=== PATIENT | male | born 1955 | race Caucasian/White ===

== ENCOUNTER 2019-01-03 03:51 | Inpatient (IN) | payer MEDICAID ==
[~2019-01-03] VITALS: Ht 165.1 cm; Wt 77.7 kg
[2019-01-03] VITALS (18 sets, daily range): BP systolic 84–164; BP diastolic 46–93; PULSE 93–127; RESP 14–27; Ht 165.1 cm; Wt 77.7 kg
[2019-01-03] MEDS ORDERED: SOD CHLORIDE 0.9% 1,000 ML IV STA (03:57)
[2019-01-03] MEDS ORDERED: SOD CHLORIDE 0.9% 1,000 ML IV ONE ×2 (05:30→08:00)
[2019-01-03] MEDS ORDERED: FOLIC ACID 1 MG TAB PO ONE (05:30)
[2019-01-03] MEDS ORDERED: ACETAMINOPHEN 325 MG TAB PO PRN (05:30)
[2019-01-03] MEDS ORDERED: THIAMINE 100 MG TAB PO ONE (05:30)
[2019-01-03] MEDS ORDERED: ONDANSETRON 4 MG INJ IV PRN (05:30)
[2019-01-03] MEDS: PANTOPRAZOLE 40 MG INJ IV SCH (06:00)
[2019-01-03] MEDS ORDERED: ACETAMINOPHEN 650MG/20.3ML CUP PO PRN (06:00)
--- NOTE | 2019-01-03 06:29 | ERD ---
ER Documentation Chief Complaint Chief Complaint BIB R90. ALTERED, ETOH INTOXICATIOX X 3 DAYS. HPI This is a 63-year-old male with an unknown past medical history aside from alcohol abuse who is presenting with altered mental status. According to the patient's friends, the patient went on a doherty and has been consuming heavy amounts of alcohol over the last 3-4 days. The patient did not drink today. The patient was found this evening acutely altered, which is when his housemates called an ambulance. The patient bit his tongue. He is awake and alert but only oriented x1. He is unable to answer other orientation questions. The patient does not have any focal deficits. He does not have any weakness or numbness or tingling to the face or extremities. The patient is diaphoretic. History and physical is limited secondary to altered mentation. ROS Limited secondary to altered mentation. Allergies Allergies: Coded Allergies: No Known Allergy (Unverified , 01/03/19) PMhx/Soc Medical and Surgical Hx: pt denies Medical Hx, pt denies Surgical Hx History of Surgery: No Anesthesia Reaction: No Hx Neurological Disorder: No Hx Respiratory Disorders: No Hx Cardiac Disorders: No Hx Psychiatric Problems: No Hx Miscellaneous Medical Probl: No Hx Alcohol Use: Yes (EVERYDAY DRINKER) Hx Substance Use: No Hx Tobacco Use: No Smoking Status: Unknown if ever smoked FmHx Unable to obtain secondary to altered mentation. Physical Exam Vitals Vital Signs Date Temp Pulse Resp B/P (MAP) Pulse Ox O2 O2 Flow FiO2 Time Delivery Rate 01/03/19 114 24 196/108 98 Nasal 2.0 05:12 (137) Cannula 01/03/19 98.7 115 20 185/98 95 03:57 (127) 01/03/19 Nasal 2 03:55 Cannula Physical Exam Const: No apparent distress, well-developed, well-nourished Head: Normocephalic, Atraumatic Eyes: Normal Conjunctiva. Extraocular movements intact. Pupils equal, round and reactive to light ENT: Normal External Ears, Nose and Mouth. Tongue abrasions. Neck: Full range of motion. No meningismus. Resp: Clear to auscultation bilaterally, No wheezes, rales or rhonchi Cardio: Regular rate and rhythm. No murmurs, rubs or gallops Abd: Soft, non tender, non distended. Normal bowel sounds Skin: No petechiae or rashes Back: No midline tenderness. No CVA tenderness Ext: No cyanosis, or edema Neur: Awake and alert, oriented 1. Cranial nerves intact. No facial droop. Normal strength, sensation and coordination. Result Diagram: 01/03/190 01/03/19399 Results 24 hrs Laboratory Tests Test 01/03/19 04:00 01/03/19 04:01 01/03/19 04:04 01/03/19 05:18 White Blood Count 6.8 10^3/ul Red Blood Count 4.41 10^6/ul Hemoglobin 12.3 g/dl Hematocrit 34.9 % Mean Corpuscular 79.1 fl Volume Mean Corpuscular 27.9 pg Hemoglobin Mean Corpuscular 35.2 g/dl Hemoglobin Concent Red Cell 12.7 % Distribution Width Platelet Count 91 10^3/UL Mean Platelet 11.6 fl Volume Immature 0.900 % Granulocytes % Neutrophils % 70.5 % Lymphocytes % 20.9 % Monocytes % 7.4 % Eosinophils % 0.0 % Basophils % 0.3 % Nucleated Red Blood 0.3 /100WBC Cells % Immature 0.060 10^3/ul Granulocytes # Neutrophils # 4.8 10^3/ul Lymphocytes # 1.4 10^3/ul Monocytes # 0.5 10^3/ul Eosinophils # 0.0 10^3/ul Basophils # 0.0 10^3/ul Nucleated Red Blood 0.0 10^3/ul Cells # Sodium Level 117 mmol/L Potassium Level 3.0 mmol/L Chloride Level 74 mmol/L Carbon Dioxide 24 mmol/L Level Anion Gap 19 Blood Urea Nitrogen 10 mg/dl Creatinine 0.68 mg/dl Est Glomerular > 60 mL/min Filtrat Rate mL/min Glucose Level 251 mg/dl Calcium Level 8.1 mg/dl Total Bilirubin 0.8 mg/dl Direct Bilirubin 0.00 mg/dl Indirect Bilirubin 0.8 mg/dl Aspartate Amino 165 IU/L Transf (AST/SGOT) Alanine 84 IU/L Aminotransferase (A LT/SGPT) Alkaline 69 IU/L Phosphatase Total Protein 6.4 g/dl Albumin 3.9 g/dl Globulin 2.50 g/dl Albumin/Globulin 1.56 Ratio Salicylates Level < 1.0 mg/dl Acetaminophen Level < 10.0 ug/ml Ethyl Alcohol Level < 10.0 mg/dl POC Venous Lactate 7.7 mmol/L Bedside Glucose 236 mg/dL Urine Color STRAW Urine Clarity CLEAR Urine pH 9.0 Urine Specific 1.008 [place] Urine Ketones NEGATIVE mg/dL Urine Nitrite NEGATIVE mg/dL Urine Bilirubin NEGATIVE mg/dL Urine Urobilinogen NEGATIVE mg/dL Urine Leukocyte NEGATIVE Gloria/ul Esterase Urine Microscopic 2 /HPF RBC Urine Microscopic 0 /HPF WBC Urine Hemoglobin 1+ mg/dL Urine Glucose 2+ mg/dL Urine Total Protein NEGATIVE mg/dl Urine Opiates Negative Screen Urine Barbiturates Negative Urine Amphetamines Negative Screen Urine Negative Benzodiazepines Screen Urine Cocaine Negative Screen Urine Cannabinoids Negative Current Medications Medications Dose Sig/Rica Start Time Status Last (Trade) Ordered Route PRN Stop Time Admin Dose Reason Admin Sodium 1,000 ml @ Q1H STAT 01/03/19 DC 01/03/19 Chloride 1,000 mls/hr IV 03:57 01/03/19 04:13 04:56 Sodium 1,000 ml @ Q1H ONCE 01/03/19 01/03/19 Chloride 1,000 mls/hr IV 05:30 01/03/19 05:27 06:29 Thiamine 100 mg ONCE ONCE 01/03/19 DC 01/03/19 HCl PO 05:30 01/03/19 06:13 (Vitamin B1) 05:31 Folic Acid 1 mg ONCE ONCE 01/03/19 DC 01/03/19 (Folic Acid) PO 05:30 01/03/19 06:13 05:31 Ondansetron 4 mg ER BRIDGE 01/03/19 HCl (Zofran PRN IV 05:30 01/04/19 Inj) NAUSEA/VOMITI 05:29 NG 650 mg ER BRIDGE 01/03/19 Acetaminophen PRN PO 05:30 01/04/19 (Tylenol .MILD PAIN 05:29 Tab) 1-3 OR TEMP Ondansetron 4 mg Q6H PRN 01/03/19 HCl (Zofran IV NAUSEA 06:00 Inj) AND/OR VOMITING 650 mg Q6H PRN 01/03/19 Acetaminophen PO PAIN 06:00 (Tylenol LEVEL 1-3 OR Liquid) FEVER Lorazepam 1 mg Q2H PRN 01/03/19 (Ativan) IV CONTROL 06:00 WITHDRAWAL SYMPTOMS 40 mg DAILY@06 01/03/19 Pantoprazole IV 06:00 (Protonix Iv) Procedures/MDM MDM The patient's presentation warrants further investigation. Previous medical records, if available, were reviewed. LABS The patient's laboratory testing was obtained and reviewed. No emergent treatment was required unless described below. CBC: No E/o systemic infection. Microcytic anemia, not emergent. Thrombocytopenia, likely related to his alcohol abuse. Chemistry: Emergent hyponatremia, likely acute. Hypokalemia, nonemergent. Hyperglycemia without evidence of DKA. Transaminitis and a ratio concerning for alcoholic liver disease. No E/o severe acidosis or alkalosis or renal failure. Lactate: Elevated, which I suspect is related to a seizure. Symptoms not consistent with an infectious etiology. Urine: No E/o acute infection or hematuria Tox: No E/o alcohol abuse. No E/o illicit drug use. No E/o salicylate or acetaminophen use. EKG EKG read by me: Rate/Rhythm: Sinus tachycardia at 109 bpm Intervals: Normal [place]: Normal Impression: No evidence of acute ischemia or arrhythmia IMAGING Imaging and Radiology interpretation reviewed. CXR FINDINGS: There is no airspace consolidation or focal infiltrate. No pleural effusion or pneumothorax. Cardiac silhouette and mediastinal contours are unremarkable. Pulmonary vasculature appears normal. Regional bones are grossly unremarkable. IMPRESSION: No evidence of active cardiopulmonary disease. Electronically viewed and signed by Physician Reji on 01/03/2019 04:53 CT Head FINDINGS: CALVARIUM: Regional bones are intact. SINUSES: Paranasal sinuses and mastoid air cells are clear. BRAIN: There is no evidence of intracranial hemorrhage. Prominence of ventricles and cisterns is normal for age. Pal - white differentiation is preserved and there is no evidence of an acute or subacute territorial infarction. No intracranial mass or mass effect. IMPRESSION: Negative unenhanced head CT. Electronically viewed and signed by Physician Reji on 01/03/2019 04:53 TREATMENT/DISPOSITION The patient presents with altered mental status. The patient has evidence of chronic alcohol abuse and alcoholic liver disease. The patient reportedly has been drinking heavily for several days, but his alcohol level is negative currently. I am concerned about alcohol withdrawal. Wernicke encephalopathy is certainly a possibility. The patient may benefit from an MRI in the hospital. I am also concerned about the possibility of an alcohol withdrawal seizure. The patient's lactic acid is quite elevated and there is clinical evidence of a seizure including abrasions to the tongue. Another possible etiology of his seizure could be his significant hyponatremia Given the patient's significant binge drinking over the last 4 days, I suspect that his hyponatremia is acute and related to poor nutrition. The patient was given IV fluids in the emergency department. The patient was also treated with thiamine and folate. The patient is tachycardic, but I believe this to be related to his alcohol withdrawal. Aside from tachycardia, the patient is afebrile with stable vital signs and no leukocytosis. I suspect the patient's lactic acid is related to a seizure and less likely sepsis. I do not believe the patient is septic and I do not think he requires a full septic workup. I do not feel the patient would benefit from antibiotics. CRITICAL CARE NOTE Time: 37 minutes excluding all billable procedures. Treatments/Evaluations: The patient was at risk of hemodynamic compromise. Timing of critical care involved close serial monitoring, evaluation of the patient's medical record including previous records & current laboratory/imaging studies, potential interventions for prevention of hemodynamic/ cardiopulmonary/ neurologic compromise, maintaining tight fluid balance, and any discussions with the family and/or consultants regarding the patient's status and prognosis. ADMISSION At this time, I feel that the patient requires admission for further evaluation and management. The patient will be admitted to panel in accordance with the patient's insurance. The patient was accepted by Dr. aNsh at 5:14 AM on Dec. Disclaimer: Inadvertent spelling and grammatical errors are likely due to EHR/dictation software use and do not reflect on the overall quality of patient care. Note that the electronic time recorded on this note does not necessarily reflect the actual time of the patient encounter. Departure Diagnosis: Primary Impression: Seizure Additional Impressions: Hyponatremia Alcohol withdrawal Complication of substance-induced condition: with delirium Qualified Codes: F10.231 - Alcohol dependence with withdrawal delirium Alcoholic liver disease Transaminitis Hypokalemia Microcytic anemia Thrombocytopenia Lactic acidosis Hyperglycemia Condition: Critical HUNTER LOYA MD Jan 03, 2019 06:27
--- NOTE | 2019-01-03 07:27 | HP ---
Date/Time of Note Date/Time of Note DATE: 01/03/19 TIME: 07:20 Assessment/Plan VTE Prophylaxis SCD applied (from Nsg): Yes Pharmacological prophylaxis: NA/contraindicated Pharm contraindication: low risk/ambulating Lines/Catheters IV Catheter Type (from Nrsg): Saline Lock Assessment/Plan Hospital Course This is a 63-year-old male being admitted to the ICU floor for: #1 acute encephalopathy: Likely multifactorial secondary to underlying severe hyponatremia, possible alcohol withdrawal, possible seizure, possible Wernicke encephalopathy.. At the current time patient is alert and oriented x1 he does not have any focal neurological deficits however he is not able to give any other history and he is not making sense with what he saying. At the current time will monitor for seizures with PRN Ativan and monitor for ETOH withdrawl. Treat the hyponatremia. Consider MRI of the brain when more stable. Neurology consultation. #2 severe hyponatremia: Unsure if acute or chronic, will need to increase it atleast to above 120 then try not to correct more than 4 - 6 meq in the first 24 hrs. Likely secondary to poor p.o. intake, dehydration, alcohol use. Will check stat BMP to assess patient's current sodium status after receiving 1.5 L of normal saline in the ED. Patient does appear to be clinically dry. Will obtain repeat sodium level and consider hypertonic saline. Patient though does appear to be volume depleted and likely will need more normal saline bolus. Will check fractional excretion of sodium, urine osmolarity, microscopic UA. Will consult nephrology Dr. Borrego. #3 hypokalemia: Again secondary likely to alcohol use, poor p.o. intake, dehydration. Will replete. #4 #4 profound lactic acidosis: Initial lactate 7.1. Likely secondary to alcohol, possible seizure. Will repeat. No signs of infection at the current time so hold off on any further antibiotics. #5 possible seizure: patient does appear to have bitten his tongue. Possibly secondary to ETOH intox/withdrawl. PRN Ativan, seizure precautions. Will consult neurology Dr. garcia. consider MRI brain when able, EEG #6 alcohol abuse: Patient at the current time his blood alcohol level is nond etectable. Nonetheless given history provided by family friends we will treat him with as needed Ativan, Librium taper. We will also treat for possible underlying Warnicke encephalopathy with high-dose thiamine. Folic acid, MVI. Will check vitamin B12 and folate level. #7 thrombocytopenia: Possibly secondary to underlying liver disease, will obtain right upper quadrant ultrasound. Avoid any chemical anticoagulants and at the current time. Monitor platelet count. #8 Microcytosis: We will check iron stores #9 elevated blood glucose: We will check hemoglobin A 1C, insulin sliding scale #10 DVT GI prophylaxis: SCDs, no GI prophylaxis indicated Protonix IV Further treatment strategy will be implemented as per the clinical course Greater than 45 minutes of critical care time was spent on the care management this patient. Result Diagram: 01/03/19 0651 01/03/19 0400 Results 24hrs Laboratory Tests Test 01/03/19 04:00 01/03/19 04:01 01/03/19 04:04 01/03/19 05:18 White Blood Count 6.8 Red Blood Count 4.41 L Hemoglobin 12.3 L Hematocrit 34.9 L Mean Corpuscular Volume 79.1 L Mean Corpuscular 27.9 L Hemoglobin Mean Corpuscular 35.2 Hemoglobin Concent Red Cell Distribution 12.7 Width Platelet Count 91 L Mean Platelet Volume 11.6 H Immature Granulocytes % 0.900 H Neutrophils % 70.5 Lymphocytes % 20.9 Monocytes % 7.4 Eosinophils % 0.0 Basophils % 0.3 Nucleated Red Blood 0.3 H Cells % Immature Granulocytes # 0.060 H Neutrophils # 4.8 Lymphocytes # 1.4 Monocytes # 0.5 Eosinophils # 0.0 Basophils # 0.0 Nucleated Red Blood 0.0 Cells # Sodium Level 117 *L Potassium Level 3.0 L Chloride Level 74 L Carbon Dioxide Level 24 Anion Gap 19 H Blood Urea Nitrogen 10 Creatinine 0.68 Est Glomerular Filtrat > 60 Rate mL/min Glucose Level 251 H Calcium Level 8.1 L Total Bilirubin 0.8 Direct Bilirubin 0.00 Indirect Bilirubin 0.8 Aspartate Amino 165 H Transf (AST/SGOT) Alanine 84 H Aminotransferase (ALT/SG PT) Alkaline Phosphatase 69 Total Protein 6.4 Albumin 3.9 Globulin 2.50 Albumin/Globulin Ratio 1.56 Salicylates Level < 1.0 L Acetaminophen Level < 10.0 L Ethyl Alcohol Level < 10.0 H POC Venous Lactate 7.7 *H Bedside Glucose 236 H Urine Color STRAW Urine Clarity CLEAR Urine pH 9.0 Urine Specific [place] 1.008 Urine Ketones NEGATIVE Urine Nitrite NEGATIVE Urine Bilirubin NEGATIVE Urine Urobilinogen NEGATIVE Urine Leukocyte Esterase NEGATIVE Urine Microscopic RBC 2 Urine Microscopic WBC 0 Urine Hemoglobin 1+ H Urine Glucose 2+ H Urine Total Protein NEGATIVE Urine Opiates Screen Negative Urine Barbiturates Negative Urine Amphetamines Negative Screen Urine Benzodiazepines Negative Screen Urine Cocaine Screen Negative Urine Cannabinoids Negative Test 01/03/19 06:03 01/03/19 06:05 01/03/19 06:51 Lactic Acid Level 2.1 *H White Blood Count 8.3 # 8.5 Red Blood Count 4.34 L 4.62 L Hemoglobin 12.1 L 12.7 L Hematocrit 33.5 L 35.5 L Mean Corpuscular Volume 77.2 L 76.8 L Mean Corpuscular 27.9 L 27.5 L Hemoglobin Mean Corpuscular 36.1 35.8 Hemoglobin Concent Red Cell Distribution 12.6 12.7 Width Platelet Count 82 L 71 L Mean Platelet Volume 12.6 H 12.0 H Immature Granulocytes % 0.800 H 0.400 Neutrophils % 90.1 H 87.8 H Lymphocytes % 5.9 L 8.8 L Monocytes % 3.1 2.8 Eosinophils % 0.0 0.0 Basophils % 0.1 0.2 Nucleated Red Blood 0.0 0.0 Cells % Immature Granulocytes # 0.070 H 0.030 Neutrophils # 7.5 7.5 Lymphocytes # 0.5 L 0.8 Monocytes # 0.3 0.2 L Eosinophils # 0.0 0.0 Basophils # 0.0 0.0 Nucleated Red Blood 0.0 0.0 Cells # HPI/ROS Admit Date/Time Admit Date/Time Jan 03, 2019 at 05:29 Hx of Present Illness Chief complaint: Altered mental status the following history was obtained from the ED physician as well as from the RN and the EMS as patient not able to provide history. This is a 63-year-old male with an unknown past medical history aside from alcohol abuse who is presenting with altered mental status. According to the patient's friends, the patient was binge drinking heavy amounts of alcohol over the last 3-4 days, and then stopped yesterday. . The patient was found this evening acutely altered, which is when his housemates called an ambulance. The patient bit his tongue. Upon my examination of the patient he is awake and alert but he only oriented to himself, he does not know where he is or what the date is. He is unable to give any history. He is able to follow commands such as raising bilateral feet and legs symmetrically. There does not appear to be any focal neurological deficits. He was able to state that he needs to urinate but he was unable to properly urinate into the urinal without assistance as he did not have coordination. Allergies: NKDA Medications: Unknown ROS Subjective hx not possible: other (Unable to obtain given patient's acute encephalopathy) PMH/Family/Social Past Medical History Unable to obtain given patient's acute encephalopathy Medications Current Medications Ondansetron HCl (Zofran Inj) 4 mg ER BRIDGE PRN IV NAUSEA/VOMITING; Start 01/03/19 at 05:30; Stop 01/04/19 at 05:29 Acetaminophen (Tylenol Tab) 650 mg ER BRIDGE PRN PO .MILD PAIN 1-3 OR TEMP; Start 01/03/19 at 05:30; Stop 01/04/19 at 05:29 Ondansetron HCl (Zofran Inj) 4 mg Q6H PRN IV NAUSEA AND/OR VOMITING; Start 01/03/19 at 06:00 Acetaminophen (Tylenol Liquid) 650 mg Q6H PRN PO PAIN LEVEL 1-3 OR FEVER; Start 01/03/19 at 06:00 Lorazepam (Ativan) 1 mg Q2H PRN IV CONTROL WITHDRAWAL SYMPTOMS; Start 01/03/19 at 06:00 Pantoprazole (Protonix Iv) 40 mg DAILY@06 IV ; Start 01/03/19 at 06:00 Thiamine HCl (Vitamin B1) 500 mg ONCE ONCE IV ; Start 01/03/19 at 07:30; Stop 01/03/19 at 07:31; Status UNV Thiamine HCl (Vitamin B1) 200 mg DAILY IM ; Start 01/03/19 at 09:00; Stop 01/07/19 at 08:59; Status UNV Folic Acid (Folic Acid) 1 mg DAILY PO ; Start 01/03/19 at 09:00; Status UNV Multivitamins Therapeutic (Theragran) 1 tab DAILY PO ; Start 01/03/19 at 09:00; Status UNV Coded Allergies: No Known Allergy (Unverified , 01/03/19) Past Surgical History Unable to obtain given patient's acute encephalopathy Family History Significant Family History: other (Unable to obtain given patient's acute encephalopathy) Social History Unable to obtain given patient's acute encephalopathy. Friend stated that he did recently go on a binge drinking spree Smoking Status: Unknown if ever smoked Exam/Review of Systems Vital Signs Vitals Vital Signs Date Temp Pulse Resp B/P (MAP) Pulse Ox O2 O2 Flow FiO2 Time Delivery Rate 01/03/19 127 07:10 01/03/19 24 196/108 98 Nasal 2.0 05:12 (137) Cannula 01/03/19 98.7 03:57 Intake and Output 01/02/19 01/02/19 01/03/19 1515:00 23:00 07:00 IntakeIntake Total 1500 ml OutputOutput Total 1100 ml BalanceBalance 400 ml Exam Exam General: Patient currently sitting in bed, he does appear diaphoretic, he is awake and alert he is able to state his name. HEENT: Atraumatic, normocephalic. Possible nystagmus on examination Neck: Supple with full range of motion. No rigidity or meningismus Chest: Nontender Lungs: Clear to auscultation bilaterally no crackles rales or wheezing Heart: Sinus tachycardia Abdomen: Soft , nontender, nondistended , bowel sounds are present. No guarding no rebound tenderness , No masses or organomegaly. No costovertebral temporal angle mass Extremities: Normal to inspection, no edema no cyanosis Neurologic: Awake and alert and oriented to person, cranial nerves II through XII intact. 1 Additional Comments PROCEDURE: CT Brain without contrast. CLINICAL INDICATION: Altered mental status, intoxication TECHNIQUE: A CT of the brain was performed utilizing axial imaging from the skull base through the vertex without IV contrast. Multiplanar reformatted images were made. Images were reviewed on a PACS workstation. CTDIvol: 38.86 mGy DLP: 857.17 mGycm DICOM images are available. One or more of the following dose reduction techniques were utilized: 1.) Automated exposure control 2.) Adjustment of the mA +/- kV according to patient's size 3.) Use of iterative reconstruction technique. COMPARISON: None FINDINGS: CALVARIUM: Regional bones are intact. SINUSES: Paranasal sinuses and mastoid air cells are clear. BRAIN: There is no evidence of intracranial hemorrhage. Prominence of ventricles and cisterns is normal for age. Pal - white differentiation is preserved and there is no evidence of an acute or subacute territorial infarction. No intracranial mass or mass effect. IMPRESSION: Negative unenhanced head CT. RPTAT: [facility] x-Socrates Cedillo, Physician Date Time Electronically viewed and signed by Physician Araecli on 01/03/2019 04:53 xB/ CC: HUNTER LOYA MD [id number] PROCEDURE: Single view chest. CLINICAL INDICATION: Altered mental status TECHNIQUE: Single view of the chest was obtained COMPARISON: None FINDINGS: There is no airspace consolidation or focal infiltrate. No pleural effusion or pneumothorax. Cardiac silhouette and mediastinal contours are unremarkable. Pulmonary vasculature appears normal. Regional bones are grossly unremarkable. IMPRESSION: No evidence of active cardiopulmonary disease. RPTAT: [facility] Bren Cedillo, Physician Date Time Electronically viewed and signed by Physician Araceli on 01/03/2019 04:53 xB/ CC: HUNTER LOYA MD [id number] LOBITO DURHAM Jan 03, 2019 07:27
[2019-01-03] MEDS ORDERED: THIAMINE 200 MG INJ IV ONE (07:30)
[2019-01-03] MEDS: INSULIN ASPART [NOVOLOG] 3 ML PEN SC SCH ×4 (07:35→20:35)
[2019-01-03] MEDS: LORAZEPAM 2 MG INJ IV PRN ×4 (07:44→17:50)
[2019-01-03] MEDS ORDERED: GLUCOSE GEL 15 GRAM TUBE PO PRN ×2 (08:00)
[2019-01-03] MEDS ORDERED: GLUCOSE GEL 15 GRAM TUBE BUCCAL PRN (08:00)
[2019-01-03] MEDS ORDERED: GLUCAGON 1 MG INJ IM PRN (08:00)
[2019-01-03] MEDS ORDERED: DEXTROSE 50% 50 ML SYRINGE IV PRN ×2 (08:00)
[2019-01-03] MEDS ORDERED: THIAMINE 500 MG in SOD CHLORIDE 0.9% 250 ML IV SCH (09:00)
--- NOTE | 2019-01-03 09:43 | CONS ---
Assessment/Plan Assessment/Plan Hospital Course 63 M c/ known ETOH abuse, who presents for evaluation of seizure and ams in the context of ETOH cessation. Na 117 The clinical picture is most consistent w/ provoked seizure.. Epilepsy is unlikely. Head CT is unrevealing. P: Baseline EEG when able Add phos level Ativan iv prn prolonged seizure or cluster Defer additional AED Tx for now, pending the above.. Other management and supportive care per primary Will follow clinically Consultation Date/Type/Reason Admit Date/Time Jan 03, 2019 at 05:29 Type of Consult Neurology Reason for Consultation seizure Requesting Provider: LOBITO DURHAM Date/Time of Note DATE: 01/03/19 TIME: 09:38 Hx of Present Illness Poor historian. Elsewhere noted: This is a 63-year-old male with an unknown past medical history aside from alcohol abuse who is presenting with altered mental status. According to the patient's friends, the patient was binge drinking heavy amounts of alcohol over the last 3-4 days, and then stopped yesterday. . The patient was found this evening acutely altered, which is when his housemates called an ambulance. The patient bit his tongue. Upon my examination of the patient he is awake and a lert but he only oriented to himself, he does not know where he is or what the date is. He is unable to give any history. He is able to follow commands such as raising bilateral feet and legs symmetrically. There does not appear to be any focal neurological deficits. He was able to state that he needs to urinate but he was unable to properly urinate into the urinal without assistance as he did not have coordination. Allergies: NKDA limited by ams Exam/Review of Systems Exam Vitals Vital Signs Date Temp Pulse Resp B/P (MAP) Pulse Ox O2 O2 Flow FiO2 Time Delivery Rate 01/03/19 111 08:00 01/03/19 98.1 25 164/93 96 Room Air 07:02 (116) 01/03/19 2.0 05:12 Intake and Output 01/02/19 01/02/19 01/03/19 1414:59 22:59 06:59 IntakeIntake Total 1500 ml OutputOutput Total 1100 ml BalanceBalance 400 ml Exam PE: Gen Appearance: No Apparent Distress HEENT: Normocephalic Cardiovascular: Tachycardic Abdomen: Soft Extremities: Dry NE: The patient was alert, though disoriented... Able to follow some commands, with prompting. Cranial nerve examination was somewhat limited by mental status. Pupils were equal and reactive to light. There was no afferent pupillary defect. Funduscopic examination was limited. Face was grossly symmetric, w/ present corneal re flexes. Tone was normal. Muscle bulk was normal. I did not see fasciculations. The patient moved his limbs symmetrically. Coordination and gait testing was limited by mental status. Arm and leg reflexes were within normal limits and symmetric. Hobson's sign was absent. Plantar responses were flexor. Results Result Diagram: 01/03/19 0651 01/03/19 0605 Results 24hrs Laboratory Tests Test 01/03/19 04:00 01/03/19 04:01 01/03/19 04:04 01/03/19 05:18 White Blood Count 6.8 Red Blood Count 4.41 L Hemoglobin 12.3 L Hematocrit 34.9 L Mean Corpuscular Volume 79.1 L Mean Corpuscular 27.9 L Hemoglobin Mean Corpuscular 35.2 Hemoglobin Concent Red Cell Distribution 12.7 Width Platelet Count 91 L Mean Platelet Volume 11.6 H Immature Granulocytes % 0.900 H Neutrophils % 70.5 Lymphocytes % 20.9 Monocytes % 7.4 Eosinophils % 0.0 Basophils % 0.3 Nucleated Red Blood 0.3 H Cells % Immature Granulocytes # 0.060 H Neutrophils # 4.8 Lymphocytes # 1.4 Monocytes # 0.5 Eosinophils # 0.0 Basophils # 0.0 Nucleated Red Blood 0.0 Cells # Sodium Level 117 *L Potassium Level 3.0 L Chloride Level 74 L Carbon Dioxide Level 24 Anion Gap 19 H Blood Urea Nitrogen 10 Creatinine 0.68 Est Glomerular Filtrat > 60 Rate mL/min Glucose Level 251 H Calcium Level 8.1 L Total Bilirubin 0.8 Direct Bilirubin 0.00 Indirect Bilirubin 0.8 Aspartate Amino 165 H Transf (AST/SGOT) Alanine 84 H Aminotransferase (ALT/SG PT) Alkaline Phosphatase 69 Total Protein 6.4 Albumin 3.9 Globulin 2.50 Albumin/Globulin Ratio 1.56 Salicylates Level < 1.0 L Acetaminophen Level < 10.0 L Ethyl Alcohol Level < 10.0 H POC Venous Lactate 7.7 *H Bedside Glucose 236 H Urine Color STRAW Urine Clarity CLEAR Urine pH 9.0 Urine Specific [place] 1.008 Urine Ketones NEGATIVE Urine Nitrite NEGATIVE Urine Bilirubin NEGATIVE Urine Urobilinogen NEGATIVE Urine Leukocyte Esterase NEGATIVE Urine Microscopic RBC 2 Urine Microscopic WBC 0 Urine Hemoglobin 1+ H Urine Glucose 2+ H Urine Total Protein NEGATIVE Urine Opiates Screen Negative Urine Barbiturates Negative Urine Amphetamines Negative Screen Urine Benzodiazepines Negative Screen Urine Cocaine Screen Negative Urine Cannabinoids Negative Test 01/03/19 06:03 01/03/19 06:05 01/03/19 06:50 01/03/19 06:51 Lactic Acid Level 2.1 *H White Blood Count 8.3 # 8.5 Red Blood Count 4.34 L 4.62 L Hemoglobin 12.1 L 12.7 L Hematocrit 33.5 L 35.5 L Mean Corpuscular Volume 77.2 L 76.8 L Mean Corpuscular 27.9 L 27.5 L Hemoglobin Mean Corpuscular 36.1 35.8 Hemoglobin Concent Red Cell Distribution 12.6 12.7 Width Platelet Count 82 L 71 L Mean Platelet Volume 12.6 H 12.0 H Immature Granulocytes % 0.800 H 0.400 Neutrophils % 90.1 H 87.8 H Lymphocytes % 5.9 L 8.8 L Monocytes % 3.1 2.8 Eosinophils % 0.0 0.0 Basophils % 0.1 0.2 Nucleated Red Blood 0.0 0.0 Cells % Immature Granulocytes # 0.070 H 0.030 Neutrophils # 7.5 7.5 Lymphocytes # 0.5 L 0.8 Monocytes # 0.3 0.2 L Eosinophils # 0.0 0.0 Basophils # 0.0 0.0 Nucleated Red Blood 0.0 0.0 Cells # Sodium Level 118 *L Potassium Level 2.6 *L Chloride Level 76 L Carbon Dioxide Level 30 Anion Gap 12 # Blood Urea Nitrogen 10 Creatinine 0.51 L Est Glomerular Filtrat > 60 Rate mL/min Glucose Level 176 Hemoglobin A1c 6.1 H Calcium Level 7.4 L Magnesium Level 1.3 L Total Bilirubin 0.5 Direct Bilirubin 0.00 Indirect Bilirubin 0.5 Aspartate Amino 150 H Transf (AST/SGOT) Alanine 86 H Aminotransferase (ALT/SG PT) Alkaline Phosphatase 58 Total Protein 5.8 L Albumin 3.4 Globulin 2.40 Albumin/Globulin Ratio 1.41 Osmolality 243 L Creatine Kinase 2498 H Test 01/03/19 07:41 01/03/19 08:09 Bedside Glucose 158 Lactic Acid Level 1.8 Medications Medication Current Medications Ondansetron HCl (Zofran Inj) 4 mg ER BRIDGE PRN IV NAUSEA/VOMITING; Start 01/03/19 at 05:30; Stop 01/04/19 at 05:29 Acetaminophen (Tylenol Tab) 650 mg ER BRIDGE PRN PO .MILD PAIN 1-3 OR TEMP; Start 01/03/19 at 05:30; Stop 01/04/19 at 05:29 Ondansetron HCl (Zofran Inj) 4 mg Q6H PRN IV NAUSEA AND/OR VOMITING; Start 01/03/19 at 06:00 Acetaminophen (Tylenol Liquid) 650 mg Q6H PRN PO PAIN LEVEL 1-3 OR FEVER; Start 01/03/19 at 06:00 Lorazepam (Ativan) 1 mg Q2H PRN IV CONTROL WITHDRAWAL SYMPTOMS Last administered on 01/03/19at 07:44; Admin Dose 1 MG; Start 01/03/19 at 06:00 Pantoprazole (Protonix Iv) 40 mg DAILY@06 IV ; Start 01/03/19 at 06:00 Folic Acid (Folic Acid) 1 mg DAILY PO ; Start 01/03/19 at 09:00 Multivitamins Therapeutic (Theragran) 1 tab DAILY PO ; Start 01/03/19 at 09:00 Diagnostic Test (Pha) (Accu-Chek) 1 ea 02 XX ; Start 01/04/19 at 02:00 Insulin Aspart (Novolog Insulin Pen) NOVOLOG *MILD* ALGORITHM WITH MEALS BEDTIME SC ; Start 01/03/19 at 07:35 Thiamine HCl 500 mg/Sodium Chloride 255 ml @ 255 mls/hr ONCE IV ; Start 01/03/19 at 09:00; Stop 01/03/19 at 12:00 Miscellaneous Information 1 ea NOTE XX ; Start 01/03/19 at 08:00 Glucose (Glutose) 15 gm Q15M PRN PO DECREASED GLUCOSE; Start 01/03/19 at 08:00 Glucose (Glutose) 22.5 gm Q15M PRN PO DECREASED GLUCOSE; Start 01/03/19 at 08:00 Dextrose (D50w Syringe) 25 ml Q15M PRN IV DECREASED GLUCOSE; Start 01/03/19 at 08:00 Dextrose (D50w Syringe) 50 ml Q15M PRN IV DECREASED GLUCOSE; Start 01/03/19 at 08:00 Glucagon (Glucagen) 1 mg Q15M PRN IM DECREASED GLUCOSE; Start 01/03/19 at 08:00 Glucose (Glutose) 15 gm Q15M PRN BUCCAL DECREASED GLUCOSE; Start 01/03/19 at 08:00 Potassium Chloride 30 meq/ Sodium Chloride 1,015 ml @ 100 mls/hr Q10H9M IV ; Start 01/03/19 at 10:00 Magnesium Sulfate 3 gm/Dextrose 106 ml @ 35.333 mls/ hr ONCE ONCE IVPB ; Start 01/03/19 at 10:00; Stop 01/03/19 at 12:59 Chlordiazepoxide (Librium) 50 mg QID PO ; Start 01/03/19 at 09:00; Stop 01/04/19 at 08:59 Chlordiazepoxide (Librium) 50 mg TID PO ; Start 01/04/19 at 09:00; Stop 01/05/19 at 08:59 Chlordiazepoxide (Librium) 25 mg TID PO ; Start 01/05/19 at 09:00; Stop 01/06/19 at 08:59 Thiamine HCl 500 mg/Sodium Chloride 255 ml @ 255 mls/hr Q8H IV ; Start 01/03/19 at 16:00; Stop 01/05/19 at 15:59 Past Medical History reviewed Medications Current Medications Ondansetron HCl (Zofran Inj) 4 mg ER BRIDGE PRN IV NAUSEA/VOMITING; Start 01/03/19 at 05:30; Stop 01/04/19 at 05:29 Acetaminophen (Tylenol Tab) 650 mg ER BRIDGE PRN PO .MILD PAIN 1-3 OR TEMP; Start 01/03/19 at 05:30; Stop 01/04/19 at 05:29 Ondansetron HCl (Zofran Inj) 4 mg Q6H PRN IV NAUSEA AND/OR VOMITING; Start 01/03/19 at 06:00 Acetaminophen (Tylenol Liquid) 650 mg Q6H PRN PO PAIN LEVEL 1-3 OR FEVER; Start 01/03/19 at 06:00 Lorazepam (Ativan) 1 mg Q2H PRN IV CONTROL WITHDRAWAL SYMPTOMS Last adminis tered on 01/03/19at 07:44; Admin Dose 1 MG; Start 01/03/19 at 06:00 Pantoprazole (Protonix Iv) 40 mg DAILY@06 IV ; Start 01/03/19 at 06:00 Folic Acid (Folic Acid) 1 mg DAILY PO ; Start 01/03/19 at 09:00 Multivitamins Therapeutic (Theragran) 1 tab DAILY PO ; Start 01/03/19 at 09:00 Diagnostic Test (Pha) (Accu-Chek) 1 ea 02 XX ; Start 01/04/19 at 02:00 Insulin Aspart (Novolog Insulin Pen) NOVOLOG *MILD* ALGORITHM WITH MEALS BEDTIME SC ; Start 01/03/19 at 07:35 Thiamine HCl 500 mg/Sodium Chloride 255 ml @ 255 mls/hr ONCE IV ; Start 01/03/19 at 09:00; Stop 01/03/19 at 12:00 Miscellaneous Information 1 ea NOTE XX ; Start 01/03/19 at 08:00 Glucose (Glutose) 15 gm Q15M PRN PO DECREASED GLUCOSE; Start 01/03/19 at 08:00 Glucose (Glutose) 22.5 gm Q15M PRN PO DECREASED GLUCOSE; Start 01/03/19 at 08:00 Dextrose (D50w Syringe) 25 ml Q15M PRN IV DECREASED GLUCOSE; Start 01/03/19 at 08:00 Dextrose (D50w Syringe) 50 ml Q15M PRN IV DECREASED GLUCOSE; Start 01/03/19 at 08:00 Glucagon (Glucagen) 1 mg Q15M PRN IM DECREASED GLUCOSE; Start 01/03/19 at 08:00 Glucose (Glutose) 15 gm Q15M PRN BUCCAL DECREASED GLUCOSE; Start 01/03/19 at 08:00 Potassium Chloride 30 meq/ Sodium Chloride 1,015 ml @ 100 mls/hr Q10H9M IV ; Start 01/03/19 at 10:00 Magnesium Sulfate 3 gm/Dextrose 106 ml @ 35.333 mls/ hr ONCE ONCE IVPB ; Start 01/03/19 at 10:00; Stop 01/03/19 at 12:59 Chlordiazepoxide (Librium) 50 mg QID PO ; Start 01/03/19 at 09:00; Stop 01/04/19 at 08:59 Chlordiazepoxide (Librium) 50 mg TID PO ; Start 01/04/19 at 09:00; Stop 01/05/19 at 08:59 Chlordiazepoxide (Librium) 25 mg TID PO ; Start 01/05/19 at 09:00; Stop 01/06/19 at 08:59 Thiamine HCl 500 mg/Sodium Chloride 255 ml @ 255 mls/hr Q8H IV ; Start 01/03/19 at 16:00; Stop 01/05/19 at 15:59 Allergies: Coded Allergies: No Known Allergy (Unverified , 01/03/19) Past Surgical History reviewed Social History Smoking Status: Unknown if ever smoked FLORIN TERRELL Jan 03, 2019 09:43
[2019-01-03] MEDS ORDERED: POTASSIUM CHLORIDE (SR) 20 MEQ TAB PO STA (09:45)
[2019-01-03] MEDS ORDERED: hydrALAzine 20 MG INJ IV PRN (10:00)
[2019-01-03] MEDS ORDERED: ENALAPRILAT 1.25 MG INJ IV PRN (10:00)
[2019-01-03] MEDS ORDERED: MAGNESIUM SULFATE 2 GM/50 ML 50 ML IVPB ONE (10:00)
[2019-01-03] MEDS ORDERED: MAGNESIUM SULFATE 3 GM in DEXTROSE 5% 100 ML IVPB ONE (10:00)
[2019-01-03] MEDS: POTASSIUM CHLORIDE 30 MEQ in SOD CHLORIDE 0.9% 1,000 ML IV SCH (10:28)
[2019-01-03] MEDS: FOLIC ACID 1 MG TAB PO SCH (10:29)
[2019-01-03] MEDS: CHLORDIAZEPOXIDE 25 MG CAP PO SCH ×4 (10:29→20:36)
[2019-01-03] MEDS: MULTIVITAMINS THERAPEUTIC TAB PO SCH (10:29)
[2019-01-03] MEDS: ONDANSETRON 4 MG INJ IV PRN ×2 (11:05→20:36)
--- NOTE | 2019-01-03 12:01 | PN ---
Date/Time of Note Date/Time of Note DATE: 01/03/19 TIME: 11:49 Assessment/Plan VTE Prophylaxis SCD applied (from Nsg): Yes Pharmacological prophylaxis: heparin Lines/Catheters IV Catheter Type (from Nrsg): Saline Lock Assessment/Plan Hospital Course Alert, comfortable No fasciculations or tremors Oriented to "hospital" and "[place]". Thinks it is 2016 Can't recall events leading to presentation here Mild tongue laceration Tachy, regular Breathing comfortable Mucous membranes moist Ext warm No abdominal pain or ascites A/P: 63 yo male with alcohol use d/o brought in by family for confusion in setting of alcohol binge. Found to have profound hyponatremia, hypokalemia, encephelopathy Hyponatremia: - Suspect tea and toast given clinical picture - He is questionably symptomatic given encephalopathy, but I will hold off on hypertonic saline for now given his clinical stability and continue isotonic NS - Trend sodium levels - Urine studies are still pending Hypokalemia: - Replete as needed Hypomagnesemia: - Replete as needed Acute encephelopahty: - Hyponatremia certainly causing this to some degree - May have some wernickes for which we will continue thiamine supplementation Alcohol withdrawal syndrome: - Librium PRN Protein calorie malnutrition Thrombocytopenia; - Likely related to etoh use. No evidence of cirrohsis on [facility] ICU care CC time 30 min Result Diagram: 01/03/19 0651 01/03/19 0605 Results 24hrs Laboratory Tests Test 01/03/19 04:00 01/03/19 04:01 01/03/19 04:04 01/03/19 05:18 White Blood Count 6.8 Red Blood Count 4.41 L Hemoglobin 12.3 L Hematocrit 34.9 L Mean Corpuscular Volume 79.1 L Mean Corpuscular 27.9 L Hemoglobin Mean Corpuscular 35.2 Hemoglobin Concent Red Cell Distribution 12.7 Width Platelet Count 91 L Mean Platelet Volume 11.6 H Immature Granulocytes % 0.900 H Neutrophils % 70.5 Lymphocytes % 20.9 Monocytes % 7.4 Eosinophils % 0.0 Basophils % 0.3 Nucleated Red Blood 0.3 H Cells % Immature Granulocytes # 0.060 H Neutrophils # 4.8 Lymphocytes # 1.4 Monocytes # 0.5 Eosinophils # 0.0 Basophils # 0.0 Nucleated Red Blood 0.0 Cells # Sodium Level 117 *L Potassium Level 3.0 L Chloride Level 74 L Carbon Dioxide Level 24 Anion Gap 19 H Blood Urea Nitrogen 10 Creatinine 0.68 Est Glomerular Filtrat > 60 Rate mL/min Glucose Level 251 H Calcium Level 8.1 L Total Bilirubin 0.8 Direct Bilirubin 0.00 Indirect Bilirubin 0.8 Aspartate Amino 165 H Transf (AST/SGOT) Alanine 84 H Aminotransferase (ALT/SG PT) Alkaline Phosphatase 69 Total Protein 6.4 Albumin 3.9 Globulin 2.50 Albumin/Globulin Ratio 1.56 Salicylates Level < 1.0 L Acetaminophen Level < 10.0 L Ethyl Alcohol Level < 10.0 H POC Venous Lactate 7.7 *H Bedside Glucose 236 H Urine Color STRAW Urine Clarity CLEAR Urine pH 9.0 Urine Specific [place] 1.008 Urine Ketones NEGATIVE Urine Nitrite NEGATIVE Urine Bilirubin NEGATIVE Urine Urobilinogen NEGATIVE Urine Leukocyte Esterase NEGATIVE Urine Microscopic RBC 2 Urine Microscopic WBC 0 Urine Hemoglobin 1+ H Urine Glucose 2+ H Urine Total Protein NEGATIVE Urine Opiates Screen Negative Urine Barbiturates Negative Urine Amphetamines Negative Screen Urine Benzodiazepines Negative Screen Urine Cocaine Screen Negative Urine Cannabinoids Negative Test 01/03/19 06:03 01/03/19 06:05 01/03/19 06:45 01/03/19 06:50 Lactic Acid Level 2.1 *H White Blood Count 8.3 # Red Blood Count 4.34 L Hemoglobin 12.1 L Hematocrit 33.5 L Mean Corpuscular Volume 77.2 L Mean Corpuscular 27.9 L Hemoglobin Mean Corpuscular 36.1 Hemoglobin Concent Red Cell Distribution 12.6 Width Platelet Count 82 L Mean Platelet Volume 12.6 H Immature Granulocytes % 0.800 H Neutrophils % 90.1 H Lymphocytes % 5.9 L Monocytes % 3.1 Eosinophils % 0.0 Basophils % 0.1 Nucleated Red Blood 0.0 Cells % Immature Granulocytes # 0.070 H Neutrophils # 7.5 Lymphocytes # 0.5 L Monocytes # 0.3 Eosinophils # 0.0 Basophils # 0.0 Nucleated Red Blood 0.0 Cells # Sodium Level 118 *L Potassium Level 2.6 *L Chloride Level 76 L Carbon Dioxide Level 30 Anion Gap 12 # Blood Urea Nitrogen 10 Creatinine 0.51 L Est Glomerular Filtrat > 60 Rate mL/min Glucose Level 176 Hemoglobin A1c 6.1 H Calcium Level 7.4 L Magnesium Level 1.3 L Total Bilirubin 0.5 Direct Bilirubin 0.00 Indirect Bilirubin 0.5 Aspartate Amino 150 H Transf (AST/SGOT) Alanine 86 H Aminotransferase (ALT/SG PT) Alkaline Phosphatase 58 Total Protein 5.8 L Albumin 3.4 Globulin 2.40 Albumin/Globulin Ratio 1.41 Prothrombin Time 12.1 Prothrombin Time Ratio 0.9 INR International 0.89 Normalized Ratio Activated 24.5 Partial Thromboplast Time Osmolality 243 L Test 01/03/19 06:51 01/03/19 07:41 01/03/19 08:09 White Blood Count 8.5 Red Blood Count 4.62 L Hemoglobin 12.7 L Hematocrit 35.5 L Mean Corpuscular Volume 76.8 L Mean Corpuscular 27.5 L Hemoglobin Mean Corpuscular 35.8 Hemoglobin Concent Red Cell Distribution 12.7 Width Platelet Count 71 L Mean Platelet Volume 12.0 H Immature Granulocytes % 0.400 Neutrophils % 87.8 H Lymphocytes % 8.8 L Monocytes % 2.8 Eosinophils % 0.0 Basophils % 0.2 Nucleated Red Blood 0.0 Cells % Immature Granulocytes # 0.030 Neutrophils # 7.5 Lymphocytes # 0.8 Monocytes # 0.2 L Eosinophils # 0.0 Basophils # 0.0 Nucleated Red Blood 0.0 Cells # Creatine Kinase 2498 H Bedside Glucose 158 Lactic Acid Level 1.8 Phosphorus Level 2.8 Subjective 24 Hr Interval Summary Free Text/Dictation Given benzo dose for withdrawal this AM He denies complaints. Clearly confused but able to converse Exam/Review of Systems Exam Vitals Vital Signs Date Temp Pulse Resp B/P (MAP) Pulse Ox O2 O2 Flow FiO2 Time Delivery Rate 01/03/19 123 17 150/90 98 11:00 (110) 01/03/19 98.1 Room Air 07:02 01/03/19 2.0 05:12 Intake and Output 01/02/19 01/02/19 01/03/19 1414:59 22:59 06:59 IntakeIntake Total 1500 ml OutputOutput Total 1100 ml BalanceBalance 400 ml Results Results 24hrs Laboratory Tests Test 01/03/19 04:00 01/03/19 04:01 01/03/19 04:04 01/03/19 05:18 White Blood Count 6.8 Red Blood Count 4.41 L Hemoglobin 12.3 L Hematocrit 34.9 L Mean Corpuscular Volume 79.1 L Mean Corpuscular 27.9 L Hemoglobin Mean Corpuscular 35.2 Hemoglobin Concent Red Cell Distribution 12.7 Width Platelet Count 91 L Mean Platelet Volume 11.6 H Immature Granulocytes % 0.900 H Neutrophils % 70.5 Lymphocytes % 20.9 Monocytes % 7.4 Eosinophils % 0.0 Basophils % 0.3 Nucleated Red Blood 0.3 H Cells % Immature Granulocytes # 0.060 H Neutrophils # 4.8 Lymphocytes # 1.4 Monocytes # 0.5 Eosinophils # 0.0 Basophils # 0.0 Nucleated Red Blood 0.0 Cells # Sodium Level 117 *L Potassium Level 3.0 L Chloride Level 74 L Carbon Dioxide Level 24 Anion Gap 19 H Blood Urea Nitrogen 10 Creatinine 0.68 Est Glomerular Filtrat > 60 Rate mL/min Glucose Level 251 H Calcium Level 8.1 L Total Bilirubin 0.8 Direct Bilirubin 0.00 Indirect Bilirubin 0.8 Aspartate Amino 165 H Transf (AST/SGOT) Alanine 84 H Aminotransferase (ALT/SG PT) Alkaline Phosphatase 69 Total Protein 6.4 Albumin 3.9 Globulin 2.50 Albumin/Globulin Ratio 1.56 Salicylates Level < 1.0 L Acetaminophen Level < 10.0 L Ethyl Alcohol Level < 10.0 H POC Venous Lactate 7.7 *H Bedside Glucose 236 H Urine Color STRAW Urine Clarity CLEAR Urine pH 9.0 Urine Specific [place] 1.008 Urine Ketones NEGATIVE Urine Nitrite NEGATIVE Urine Bilirubin NEGATIVE Urine Urobilinogen NEGATIVE Urine Leukocyte Esterase NEGATIVE Urine Microscopic RBC 2 Urine Microscopic WBC 0 Urine Hemoglobin 1+ H Urine Glucose 2+ H Urine Total Protein NEGATIVE Urine Opiates Screen Negative Urine Barbiturates Negative Urine Amphetamines Negative Screen Urine Benzodiazepines Negative Screen Urine Cocaine Screen Negative Urine Cannabinoids Negative Test 01/03/19 06:03 01/03/19 06:05 01/03/19 06:45 01/03/19 06:50 Lactic Acid Level 2.1 *H White Blood Count 8.3 # Red Blood Count 4.34 L Hemoglobin 12.1 L Hematocrit 33.5 L Mean Corpuscular Volume 77.2 L Mean Corpuscular 27.9 L Hemoglobin Mean Corpuscular 36.1 Hemoglobin Concent Red Cell Distribution 12.6 Width Platelet Count 82 L Mean Platelet Volume 12.6 H Immature Granulocytes % 0.800 H Neutrophils % 90.1 H Lymphocytes % 5.9 L Monocytes % 3.1 Eosinophils % 0.0 Basophils % 0.1 Nucleated Red Blood 0.0 Cells % Immature Granulocytes # 0.070 H Neutrophils # 7.5 Lymphocytes # 0.5 L Monocytes # 0.3 Eosinophils # 0.0 Basophils # 0.0 Nucleated Red Blood 0.0 Cells # Sodium Level 118 *L Potassium Level 2.6 *L Chloride Level 76 L Carbon Dioxide Level 30 Anion Gap 12 # Blood Urea Nitrogen 10 Creatinine 0.51 L Est Glomerular Filtrat > 60 Rate mL/min Glucose Level 176 Hemoglobin A1c 6.1 H Calcium Level 7.4 L Magnesium Level 1.3 L Total Bilirubin 0.5 Direct Bilirubin 0.00 Indirect Bilirubin 0.5 Aspartate Amino 150 H Transf (AST/SGOT) Alanine 86 H Aminotransferase (ALT/SG PT) Alkaline Phosphatase 58 Total Protein 5.8 L Albumin 3.4 Globulin 2.40 Albumin/Globulin Ratio 1.41 Prothrombin Time 12.1 Prothrombin Time Ratio 0.9 INR International 0.89 Normalized Ratio Activated 24.5 Partial Thromboplast Time Osmolality 243 L Test 01/03/19 06:51 01/03/19 07:41 01/03/19 08:09 White Blood Count 8.5 Red Blood Count 4.62 L Hemoglobin 12.7 L Hematocrit 35.5 L Mean Corpuscular Volume 76.8 L Mean Corpuscular 27.5 L Hemoglobin Mean Corpuscular 35.8 Hemoglobin Concent Red Cell Distribution 12.7 Width Platelet Count 71 L Mean Platelet Volume 12.0 H Immature Granulocytes % 0.400 Neutrophils % 87.8 H Lymphocytes % 8.8 L Monocytes % 2.8 Eosinophils % 0.0 Basophils % 0.2 Nucleated Red Blood 0.0 Cells % Immature Granulocytes # 0.030 Neutrophils # 7.5 Lymphocytes # 0.8 Monocytes # 0.2 L Eosinophils # 0.0 Basophils # 0.0 Nucleated Red Blood 0.0 Cells # Creatine Kinase 2498 H Bedside Glucose 158 Lactic Acid Level 1.8 Phosphorus Level 2.8 Medications Medication Current Medications Ondansetron HCl (Zofran Inj) 4 mg ER BRIDGE PRN IV NAUSEA/VOMITING; Start 01/03/19 at 05:30; Stop 01/04/19 at 05:29 Acetaminophen (Tylenol Tab) 650 mg ER BRIDGE PRN PO .MILD PAIN 1-3 OR TEMP; Start 01/03/19 at 05:30; Stop 01/04/19 at 05:29 Ondansetron HCl (Zofran Inj) 4 mg Q6H PRN IV NAUSEA AND/OR VOMITING Last administered on 01/03/19 11:05; Admin Dose 4 MG; Start 01/03/19 at 06:00 Acetaminophen (Tylenol Liquid) 650 mg Q6H PRN PO PAIN LEVEL 1-3 OR FEVER; Start 01/03/19 at 06:00 Lorazepam (Ativan) 1 mg Q2H PRN IV CONTROL WITHDRAWAL SYMPTOMS Last administered on 01/03/19at 11:00; Admin Dose 1 MG; Start 01/03/19 at 06:00 Pantoprazole (Protonix Iv) 40 mg DAILY@06 IV ; Start 01/03/19 at 06:00 Folic Acid (Folic Acid) 1 mg DAILY PO Last administered on 01/03/19 10:29; Admin Dose 1 MG; Start 01/03/19 at 09:00 Multivitamins Therapeutic (Theragran) 1 tab DAILY PO Last administered on 01/03/19 10:29; Admin Dose 1 TAB; Start 01/03/19 at 09:00 Diagnostic Test (Pha) (Accu-Chek) 1 ea 02 XX ; Start 01/04/19 at 02:00 Insulin Aspart (Novolog Insulin Pen) NOVOLOG *MILD* ALGORITHM WITH MEALS BEDTIME SC ; Start 01/03/19 at 07:35 Thiamine HCl 500 mg/Sodium Chloride 255 ml @ 255 mls/hr ONCE IV Last administered on 01/03/19 10:29; Admin Dose 255 MLS/HR; Start 01/03/19 at 09:00; Stop 01/03/19 at 12:00 Miscellaneous Information 1 ea NOTE XX ; Start 01/03/19 at 08:00 Glucose (Glutose) 15 gm Q15M PRN PO DECREASED GLUCOSE; Start 01/03/19 at 08:00 Glucose (Glutose) 22.5 gm Q15M PRN PO DECREASED GLUCOSE; Start 01/03/19 at 08:00 Dextrose (D50w Syringe) 25 ml Q15M PRN IV DECREASED GLUCOSE; Start 01/03/19 at 08:00 Dextrose (D50w Syringe) 50 ml Q15M PRN IV DECREASED GLUCOSE; Start 01/03/19 at 08:00 Glucagon (Glucagen) 1 mg Q15M PRN IM DECREASED GLUCOSE; Start 01/03/19 at 08:00 Glucose (Glutose) 15 gm Q15M PRN BUCCAL DECREASED GLUCOSE; Start 01/03/19 at 08:00 Potassium Chloride 30 meq/ Sodium Chloride 1,015 ml @ 100 mls/hr Q10H9M IV Last administered on 01/03/19at 10:28; Admin Dose 100 MLS/HR; Start 01/03/19 at 10:00 Magnesium Sulfate 3 gm/Dextrose 106 ml @ 35.333 mls/ hr ONCE ONCE IVPB Last administered on 01/03/19at 10:29; Admin Dose 35.333 MLS/HR; Start 01/03/19 at 10:00; Stop 01/03/19 at 12:59 Chlordiazepoxide (Librium) 50 mg QID PO Last administered on 01/03/19at 10:29; Admin Dose 50 MG; Start 01/03/19 at 09:00; Stop 01/04/19 at 08:59 Thiamine HCl 500 mg/Sodium Chloride 255 ml @ 255 mls/hr Q8H IV ; Start 01/03/19 at 16:00; Stop 01/05/19 at 15:59 Potassium Chloride 100 ml @ 50 mls/hr Q2H IVPB ; Start 01/03/19 at 10:00; Stop 01/03/19 at 13:59 Enalaprilat (Vasotec Iv) 1.25 mg Q4H PRN IV ELEVATED BLOOD PRESSURE; Start 01/03/19 at 10:00 Chlordiazepoxide (Librium) 50 mg TID PRN PO withdrawal; Start 01/04/19 at 09:00 BEBO WOODSON MD Jan 03, 2019 12:01
--- NOTE | 2019-01-03 12:11 | CONS ---
Assessment/Plan Assessment/Plan Assessment/Plan (Daily) 1. severe hyponatremia: - possibly due to potomania - will repeat BMP now. if Na continues to be low, will start patient on 3% - check Na q6h - pending urine osmolality and Na - check TSH and cortisol 2. acute encephalopathy: - due to etoh w/d and hyponatremia. possible seizure? - head ct reviewed - etoh w/d protocol - neurology consulted 3. lactic acidosis: - hypoperfusion? - cont ivf - repeat lactic acid level 4. hypokalemia and hypomagnesemia: - replace 5. thrombocytopenia: - due to underlying liver disease - monitor platelets Consultation Date/Type/Reason Admit Date/Time Jan 03, 2019 at 05:29 Type of Consult nephrology Reason for Consultation hyponatremia Date/Time of Note DATE: 01/03/19 TIME: 12:01 Hx of Present Illness Pt is a 63yo M with hx of EtoH abuse who presents with encephalopathy. Evaluation in the ER revealed Na of 117. He was given IVF and repeat Na is 118. Head CT shows no acute disease. Pt was admitted to the ICU for closer monitoring. Per family patient drinks about 16 ounces of liquor almost every day. Over the past few weeks he has not been eating much, and only drink EtOH. ROS is unobtainable due to patient's mental status PMH: EtOH abuse PSH: unknown Medications per list Allergies: NKDA Family hx: no hx of electrolyte disorder Past Medical History Medications Current Medications Ondansetron HCl (Zofran Inj) 4 mg ER BRIDGE PRN IV NAUSEA/VOMITING; Start 01/03/19 at 05:30; Stop 01/04/19 at 05:29 Acetaminophen (Tylenol Tab) 650 mg ER BRIDGE PRN PO .MILD PAIN 1-3 OR TEMP; Start 01/03/19 at 05:30; Stop 01/04/19 at 05:29 Ondansetron HCl (Zofran Inj) 4 mg Q6H PRN IV NAUSEA AND/OR VOMITING Last administered on 01/03/19at 11:05; Admin Dose 4 MG; Start 01/03/19 at 06:00 Acetaminophen (Tylenol Liquid) 650 mg Q6H PRN PO PAIN LEVEL 1-3 OR FEVER; Start 01/03/19 at 06:00 Lorazepam (Ativan) 1 mg Q2H PRN IV CONTROL WITHDRAWAL SYMPTOMS Last administered on 01/03/19at 11:00; Admin Dose 1 MG; Start 01/03/19 at 06:00 Pantoprazole (Protonix Iv) 40 mg DAILY@06 IV ; Start 01/03/19 at 06:00 Folic Acid (Folic Acid) 1 mg DAILY PO Last administered on 01/03/19at 10:29; Admin Dose 1 MG; Start 01/03/19 at 09:00 Multivitamins Therapeutic (Theragran) 1 tab DAILY PO Last administered on at 10:29; Admin Dose 1 TAB; Start 01/03/19 at 09:00 Diagnostic Test (Pha) (Accu-Chek) 1 ea 02 XX ; Start 01/04/19 at 02:00 Insulin Aspart (Novolog Insulin Pen) NOVOLOG *MILD* ALGORITHM WITH MEALS BEDTIME SC ; Start 01/03/19 at 07:35 Miscellaneous Information 1 ea NOTE XX ; Start 01/03/19 at 08:00 Glucose (Glutose) 15 gm Q15M PRN PO DECREASED GLUCOSE; Start 01/03/19 at 08:00 Glucose (Glutose) 22.5 gm Q15M PRN PO DECREASED GLUCOSE; Start 01/03/19 at 08:00 Dextrose (D50w Syringe) 25 ml Q15M PRN IV DECREASED GLUCOSE; Start 01/03/19 at 08:00 Dextrose (D50w Syringe) 50 ml Q15M PRN IV DECREASED GLUCOSE; Start 01/03/19 at 08:00 Glucagon (Glucagen) 1 mg Q15M PRN IM DECREASED GLUCOSE; Start 01/03/19 at 08:00 Glucose (Glutose) 15 gm Q15M PRN BUCCAL DECREASED GLUCOSE; Start 01/03/19 at 08:00 Potassium Chloride 30 meq/ Sodium Chloride 1,015 ml @ 100 mls/hr Q10H9M IV Last administered on 01/03/19at 10:28; Admin Dose 100 MLS/HR; Start 01/03/19 at 10:00 Magnesium Sulfate 3 gm/Dextrose 106 ml @ 35.333 mls/ hr ONCE ONCE IVPB Last administered on 01/03/19 10:29; Admin Dose 35.333 MLS/HR; Start 01/03/19 at 10:00; Stop 01/03/19 at 12:59 Chlordiazepoxide (Librium) 50 mg QID PO Last administered on 01/03/19at 10:29; Admin Dose 50 MG; Start 01/03/19 at 09:00; Stop 01/04/19 at 08:59 Thiamine HCl 500 mg/Sodium Chloride 255 ml @ 255 mls/hr Q8H IV ; Start 01/03/19 at 16:00; Stop 01/05/19 at 15:59 Potassium Chloride 100 ml @ 50 mls/hr Q2H IVPB ; Start 01/03/19 at 10:00; Stop 01/03/19 at 13:59 Enalaprilat (Vasotec Iv) 1.25 mg Q4H PRN IV ELEVATED BLOOD PRESSURE; Start 01/03/19 at 10:00 Chlordiazepoxide (Librium) 50 mg TID PRN PO withdrawal; Start 01/04/19 at 09:00 Allergies: Coded Allergies: No Known Allergy (Unverified , 01/03/19) Social History Alcohol Use: heavy Smoking Status: Unknown if ever smoked Exam/Review of Systems Exam Vitals Vital Signs Date Temp Pulse Resp B/P (MAP) Pulse Ox O2 O2 Flow FiO2 Time Delivery Rate 01/03/19 123 17 150/90 98 11:00 (110) 01/03/19 98.1 Room Air 07:02 01/03/19 2.0 05:12 Intake and Output 01/02/19 01/02/19 01/03/19 1414:59 22:59 06:59 IntakeIntake Total 1500 ml OutputOutput Total 1100 ml BalanceBalance 400 ml Exam gen altered cv rrr pulm ctab abd soft, nd, nt +bs ext: no edema Results Result Diagram: 01/03/19 0651 01/03/19 0605 Results 24hrs Laboratory Tests Test 01/03/19 04:00 01/03/19 04:01 01/03/19 04:04 01/03/19 05:18 White Blood Count 6.8 Red Blood Count 4.41 L Hemoglobin 12.3 L Hematocrit 34.9 L Mean Corpuscular Volume 79.1 L Mean Corpuscular 27.9 L Hemoglobin Mean Corpuscular 35.2 Hemoglobin Concent Red Cell Distribution 12.7 Width Platelet Count 91 L Mean Platelet Volume 11.6 H Immature Granulocytes % 0.900 H Neutrophils % 70.5 Lymphocytes % 20.9 Monocytes % 7.4 Eosinophils % 0.0 Basophils % 0.3 Nucleated Red Blood 0.3 H Cells % Immature Granulocytes # 0.060 H Neutrophils # 4.8 Lymphocytes # 1.4 Monocytes # 0.5 Eosinophils # 0.0 Basophils # 0.0 Nucleated Red Blood 0.0 Cells # Sodium Level 117 *L Potassium Level 3.0 L Chloride Level 74 L Carbon Dioxide Level 24 Anion Gap 19 H Blood Urea Nitrogen 10 Creatinine 0.68 Est Glomerular Filtrat > 60 Rate mL/min Glucose Level 251 H Calcium Level 8.1 L Total Bilirubin 0.8 Direct Bilirubin 0.00 Indirect Bilirubin 0.8 Aspartate Amino 165 H Transf (AST/SGOT) Alanine 84 H Aminotransferase (ALT/SG PT) Alkaline Phosphatase 69 Total Protein 6.4 Albumin 3.9 Globulin 2.50 Albumin/Globulin Ratio 1.56 Salicylates Level < 1.0 L Acetaminophen Level < 10.0 L Ethyl Alcohol Level < 10.0 H POC Venous Lactate 7.7 *H Bedside Glucose 236 H Urine Color STRAW Urine Clarity CLEAR Urine pH 9.0 Urine Specific [place] 1.008 Urine Ketones NEGATIVE Urine Nitrite NEGATIVE Urine Bilirubin NEGATIVE Urine Urobilinogen NEGATIVE Urine Leukocyte Esterase NEGATIVE Urine Microscopic RBC 2 Urine Microscopic WBC 0 Urine Hemoglobin 1+ H Urine Glucose 2+ H Urine Total Protein NEGATIVE Urine Opiates Screen Negative Urine Barbiturates Negative Urine Amphetamines Negative Screen Urine Benzodiazepines Negative Screen Urine Cocaine Screen Negative Urine Cannabinoids Negative Test 01/03/19 06:03 01/03/19 06:05 01/03/19 06:45 01/03/19 06:50 Lactic Acid Level 2.1 *H White Blood Count 8.3 # Red Blood Count 4.34 L Hemoglobin 12.1 L Hematocrit 33.5 L Mean Corpuscular Volume 77.2 L Mean Corpuscular 27.9 L Hemoglobin Mean Corpuscular 36.1 Hemoglobin Concent Red Cell Distribution 12.6 Width Platelet Count 82 L Mean Platelet Volume 12.6 H Immature Granulocytes % 0.800 H Neutrophils % 90.1 H Lymphocytes % 5.9 L Monocytes % 3.1 Eosinophils % 0.0 Basophils % 0.1 Nucleated Red Blood 0.0 Cells % Immature Granulocytes # 0.070 H Neutrophils # 7.5 Lymphocytes # 0.5 L Monocytes # 0.3 Eosinophils # 0.0 Basophils # 0.0 Nucleated Red Blood 0.0 Cells # Sodium Level 118 *L Potassium Level 2.6 *L Chloride Level 76 L Carbon Dioxide Level 30 Anion Gap 12 # Blood Urea Nitrogen 10 Creatinine 0.51 L Est Glomerular Filtrat > 60 Rate mL/min Glucose Level 176 Hemoglobin A1c 6.1 H Calcium Level 7.4 L Magnesium Level 1.3 L Total Bilirubin 0.5 Direct Bilirubin 0.00 Indirect Bilirubin 0.5 Aspartate Amino 150 H Transf (AST/SGOT) Alanine 86 H Aminotransferase (ALT/SG PT) Alkaline Phosphatase 58 Total Protein 5.8 L Albumin 3.4 Globulin 2.40 Albumin/Globulin Ratio 1.41 Prothrombin Time 12.1 Prothrombin Time Ratio 0.9 INR International 0.89 Normalized Ratio Activated 24.5 Partial Thromboplast Time Osmolality 243 L Test 01/03/19 06:51 01/03/19 07:41 01/03/19 08:09 White Blood Count 8.5 Red Blood Count 4.62 L Hemoglobin 12.7 L Hematocrit 35.5 L Mean Corpuscular Volume 76.8 L Mean Corpuscular 27.5 L Hemoglobin Mean Corpuscular 35.8 Hemoglobin Concent Red Cell Distribution 12.7 Width Platelet Count 71 L Mean Platelet Volume 12.0 H Immature Granulocytes % 0.400 Neutrophils % 87.8 H Lymphocytes % 8.8 L Monocytes % 2.8 Eosinophils % 0.0 Basophils % 0.2 Nucleated Red Blood 0.0 Cells % Immature Granulocytes # 0.030 Neutrophils # 7.5 Lymphocytes # 0.8 Monocytes # 0.2 L Eosinophils # 0.0 Basophils # 0.0 Nucleated Red Blood 0.0 Cells # Creatine Kinase 2498 H Bedside Glucose 158 Lactic Acid Level 1.8 Phosphorus Level 2.8 Medications Medication Current Medications Ondansetron HCl (Zofran Inj) 4 mg ER BRIDGE PRN IV NAUSEA/VOMITING; Start 01/03/19 at 05:30; Stop 01/04/19 at 05:29 Acetaminophen (Tylenol Tab) 650 mg ER BRIDGE PRN PO .MILD PAIN 1-3 OR TEMP; Start 01/03/19 at 05:30; Stop 01/04/19 at 05:29 Ondansetron HCl (Zofran Inj) 4 mg Q6H PRN IV NAUSEA AND/OR VOMITING Last administered on 01/03/19at 11:05; Admin Dose 4 MG; Start 01/03/19 at 06:00 Acetaminophen (Tylenol Liquid) 650 mg Q6H PRN PO PAIN LEVEL 1-3 OR FEVER; Start 01/03/19 at 06:00 Lorazepam (Ativan) 1 mg Q2H PRN IV CONTROL WITHDRAWAL SYMPTOMS Last administered on 01/03/19at 11:00; Admin Dose 1 MG; Start 01/03/19 at 06:00 Pantoprazole (Protonix Iv) 40 mg DAILY@06 IV ; Start 01/03/19 at 06:00 Folic Acid (Folic Acid) 1 mg DAILY PO Last administered on 01/03/19at 10:29; Admin Dose 1 MG; Start 01/03/19 at 09:00 Multivitamins Therapeutic (Theragran) 1 tab DAILY PO Last administered on 01/03/19 10:29; Admin Dose 1 TAB; Start 01/03/19 at 09:00 Diagnostic Test (Pha) (Accu-Chek) 1 ea 02 XX ; Start 01/04/19 at 02:00 Insulin Aspart (Novolog Insulin Pen) NOVOLOG *MILD* ALGORITHM WITH MEALS BEDTIME SC ; Start 01/03/19 at 07:35 Miscellaneous Information 1 ea NOTE XX ; Start 01/03/19 at 08:00 Glucose (Glutose) 15 gm Q15M PRN PO DECREASED GLUCOSE; Start 01/03/19 at 08:00 Glucose (Glutose) 22.5 gm Q15M PRN PO DECREASED GLUCOSE; Start 01/03/19 at 08:00 Dextrose (D50w Syringe) 25 ml Q15M PRN IV DECREASED GLUCOSE; Start 01/03/19 at 0 8:00 Dextrose (D50w Syringe) 50 ml Q15M PRN IV DECREASED GLUCOSE; Start 01/03/19 at 08:00 Glucagon (Glucagen) 1 mg Q15M PRN IM DECREASED GLUCOSE; Start 01/03/19 at 08:00 Glucose (Glutose) 15 gm Q15M PRN BUCCAL DECREASED GLUCOSE; Start 01/03/19 at 08:00 Potassium Chloride 30 meq/ Sodium Chloride 1,015 ml @ 100 mls/hr Q10H9M IV Last administered on 01/03/19at 10:28; Admin Dose 100 MLS/HR; Start 01/03/19 at 10:00 Magnesium Sulfate 3 gm/Dextrose 106 ml @ 35.333 mls/ hr ONCE ONCE IVPB Last administered on 01/03/19at 10:29; Admin Dose 35.333 MLS/HR; Start 01/03/19 at 10:00; Stop 01/03/19 at 12:59 Chlordiazepoxide (Librium) 50 mg QID PO Last administered on 01/03/19at 10:29; Admin Dose 50 MG; Start 01/03/19 at 09:00; Stop 01/04/19 at 08:59 Thiamine HCl 500 mg/Sodium Chloride 255 ml @ 255 mls/hr Q8H IV ; Start 01/03/19 at 16:00; Stop 01/05/19 at 15:59 Potassium Chloride 100 ml @ 50 mls/hr Q2H IVPB ; Start 01/03/19 at 10:00; Stop 01/03/19 at 13:59 Enalaprilat (Vasotec Iv) 1.25 mg Q4H PRN IV ELEVATED BLOOD PRESSURE; Start 01/03/19 at 10:00 Chlordiazepoxide (Librium) 50 mg TID PRN PO withdrawal; Start 01/04/19 at 09:00 RUSTY COON MD Jan 03, 2019 12:11
[2019-01-03] MEDS: POTASSIUM CHLORIDE 100 ML IVPB SCH ×2 (12:35→15:45)
[2019-01-03] MEDS ORDERED: NACL 3% 500 ML IV SCH (13:30)
[2019-01-03] MEDS ORDERED: THIAMINE 200 MG INJ IV SCH (14:00)
[2019-01-03] MEDS: THIAMINE 500 MG in SOD CHLORIDE 0.9% 250 ML IV SCH (16:45)
[2019-01-03] MEDS ORDERED: LORAZEPAM 2 MG INJ IM PRN (17:39)
[2019-01-04] VITALS (25 sets, daily range): BP systolic 92–144; BP diastolic 60–88; PULSE 80–114; RESP 11–22
[2019-01-04] MEDS: THIAMINE 500 MG in SOD CHLORIDE 0.9% 250 ML IV SCH ×4 (01:04→23:15)
[2019-01-04] MEDS: POTASSIUM CHLORIDE 30 MEQ in SOD CHLORIDE 0.9% 1,000 ML IV SCH (01:06)
[2019-01-04] MEDS: ACCU-CHEK XX SCH (01:06)
[2019-01-04] MEDS: PANTOPRAZOLE 40 MG INJ IV SCH ×2 (06:46→07:00)
[2019-01-04] MEDS: DEXTROSE 5% 1,000 ML IV SCH ×3 (07:04→21:30)
[2019-01-04] MEDS: INSULIN ASPART [NOVOLOG] 3 ML PEN SC SCH ×4 (07:35→20:15)
[2019-01-04] MEDS: MULTIVITAMINS THERAPEUTIC TAB PO SCH (08:04)
[2019-01-04] MEDS: FOLIC ACID 1 MG TAB PO SCH (08:04)
[2019-01-04] MEDS ORDERED: CHLORDIAZEPOXIDE 25 MG CAP PO SCH (09:00)
[2019-01-04] MEDS ORDERED: THIAMINE 200 MG INJ IM SCH (09:00)
[2019-01-04] MEDS: LORAZEPAM 2 MG INJ IV PRN ×3 (09:26→21:29)
--- NOTE | 2019-01-04 12:31 | CONS ---
Assessment/Plan Assessment/Plan Hospital Course 63 M c/ known ETOH abuse, who presents for evaluation of seizure and ams in the context of ETOH cessation. Na 117 The clinical picture is most consistent w/ provoked seizure.. Epilepsy is unlikely. Head CT is unrevealing. P: Baseline EEG when able Add phos level Ativan iv prn prolonged seizure or cluster Defer additional AED Tx for now, pending the above.. Other management and supportive care per primary Will follow clinically Consultation Date/Type/Reason Admit Date/Time Jan 03, 2019 at 05:29 Type of Consult Neurology Requesting Provider: LOBITO DURHAM Date/Time of Note DATE: 01/04/19 TIME: 12:31 Exam Vital Signs Vitals Vital Signs Date Temp Pulse Resp B/P (MAP) Pulse Ox O2 O2 Flow FiO2 Time Delivery Rate 01/04/19 87 17 130/81 99 Room Air 11:00 (97) 01/04/19 99.1 09:00 01/03/19 2.0 05:12 Intake and Output 01/03/19 01/03/19 01/04/19 1515:00 23:00 07:00 IntakeIntake Total 1311 ml 1390 ml 975 ml OutputOutput Total 975 ml 1650 ml 1550 ml BalanceBalance 336 ml -260 ml -575 ml REMINGTON WILSON [employer] Jan 04, 2019 12:31
--- NOTE | 2019-01-04 12:40 | CONS ---
Assessment/Plan Assessment/Plan Hospital Course 63 M c/ known ETOH abuse, who presents for evaluation of seizure and ams in the context of ETOH cessation. Na 117 The clinical picture is most consistent w/ provoked seizure.. Epilepsy is unlikely. Head CT is unrevealing. P: Baseline EEG when able Ativan iv prn prolonged seizure or cluster Defer additional AED Tx for now, pending the above.. Other management and supportive care per primary Will follow clinically Consultation Date/Type/Reason Admit Date/Time Jan 03, 2019 at 05:29 Type of Consult Neurology Reason for Consultation seizure Requesting Provider: LOBITO DURHAM Date/Time of Note DATE: 01/04/19 TIME: 12:40 24 HR Interval Summary Free Text/Dictation agitation noted this am Exam Vital Signs Vitals Vital Signs Date Temp Pulse Resp B/P (MAP) Pulse Ox O2 O2 Flow FiO2 Time Delivery Rate 01/04/19 87 17 130/81 99 Room Air 11:00 (97) 01/04/19 99.1 09:00 01/03/19 2.0 05:12 Intake and Output 01/03/19 01/03/19 01/04/19 1515:00 23:00 07:00 IntakeIntake Total 1311 ml 1390 ml 975 ml OutputOutput Total 975 ml 1650 ml 1550 ml BalanceBalance 336 ml -260 ml -575 ml Exam PE: Gen Appearance: No Apparent Distress HEENT: Normocephalic Cardiovascular: Regular rate Abdomen: Soft Extremities: Dry NE: The patient was sedated... disoriented... Able to follow simple axial and mesha endicular commands with prompting. Cranial nerve examination was somewhat limited by mental status. Pupils were equal and reactive to light. There was no afferent pupillary defect. Funduscopic examination was limited. Face was grossly symmetric, w/ present corneal reflexes. Tone was normal. Muscle bulk was normal. I did not see fasciculations. The patient moved his limbs symmetrically. Coordination and gait testing was limited by mental status. Arm and leg reflexes were within normal limits and symmetric. Hobson's sign was absent. Plantar responses were flexor. FLORIN TERRELL Jan 04, 2019 12:40 REMINGTON WILSON NP Jan 04, 2019 14:11
[2019-01-04] MEDS: POTASSIUM CHLORIDE 50 ML IVPB PRN ×3 (13:52→16:27)
--- NOTE | 2019-01-04 16:45 | PN ---
DATE: 01/04/2019 NEPHROLOGY NOTE SUBJECTIVE: The patient was placed on 3% sodium chloride overnight. The patient's sodium levels hav e increased to 131 mEq. this morning. The patient's urinary output has been adequate with over 4 lit ers. There has been no reports of any hemoptysis, hematemesis or hematochezia. No neurological defi cits noted. OBJECTIVE: VITAL SIGNS: Blood pressure is 114/78, respirations 17, pulse 95, temperature 99.7. HEENT: Head is normocephalic. NECK: Supple. HEART: Regular rate. LUNGS: Show diminished breath sounds at the base. ABDOMEN: Soft, nontender to palpation without rebound or guarding. EXTREMITIES: Negative for clubbing, cyanosis, no edema. DERMATOLOGIC: No rashes. MUSCULOSKELETAL: No joint effusions. NEUROLOGIC: No change in exam. MEDICATIONS: The patient's medications have been reviewed. LABORATORY DATA: Shows sodium 132, potassium 3.4, BUN 9, creatinine 0.71. White count 8.5, hemoglob in 12.7, platelet count 71. The patient's CT scan of the brain was reviewed. The patient's electrol ytes were reviewed. The patient had a FENa of less than 1%, and urine osmolarity of 148 mOsm/L. ASSESSMENT AND PLAN: This is a 63-year-old male who presents with: 1. Hyponatremia. Etiology is possibly multifactorial secondary to hypovolemia in conjunction with l ow solute intake i.e. beer potomania. The patient's FENa is less than 1%. The patient has a urine o smolarity of 148 mOsm/L. Would suggest that patient is likely due to low solute intake more consiste nt with beer potomania. The possibility of a superimposed volume depletion is a consideration. The patient's sodium level increased from 117 to 130 mEq in a 24-hour period. Will plan at this point is to discontinue 3% sodium chloride. Patient will be placed on D5 water to ensure correction of no mo re than 18 mEq in a 48-hour period. Will continue to monitor closely. Monitor for any changes in ne urological status. 2. Hypokalemia. We will replete with potassium chloride. 3. Acute encephalopathy, etiology is multifactorial secondary to hyponatremia, ETOH withdrawal, ques tionable seizures. Will continue to monitor. Follow up with neurology. 4. Lactic acidosis, resolved. Continue to monitor. 5. ETOH use. Continue medical management. Monitor for signs of withdrawal. 6. Hypokalemia. Replete with potassium chloride. 7. Thrombocytopenia. Continue to monitor, possibly due to ETOH use bone marrow suppression. Please note I spent over 30 minutes of critical care time with this patient. Dictated By: CASANDRA STOVER DO NR/NTS Conf#: [id number] DID#: [id number] CC: LOBITO DURHAM MD;*EndCC*
--- NOTE | 2019-01-04 16:53 | PN ---
Date/Time of Note Date/Time of Note DATE: 01/04/19 TIME: 16:47 Assessment/Plan VTE Prophylaxis Risk score (from Ns)>0 risk: 6 SCD applied (from Ns): Yes Pharmacological prophylaxis: NA/contraindicated Pharm contraindication: blood coag disorder Lines/Catheters IV Catheter Type (from [facility], [place]): Peripheral IV Assessment/Plan Hospital Course 63 yo male with alcohol use d/o brought in by family for confusion in setting of alcohol binge. Found to have profound hyponatremia, hypokalemia and encephalopathy Hyponatremia: Improving - Suspect tea and toast given clinical picture -Nephrology managing fluids Hypokalemia: - Replete as needed Hypomagnesemia: - Replete as needed Acute encephalopathy secondary to hyponatremia and likely Wernicke's -Continue fluids and thiamine supplementation Alcohol withdrawal syndrome: - Librium PRN, restraints Protein calorie malnutrition Thrombocytopenia; - Likely related to etoh use. No evidence of cirrhosis on US Result Diagram: 01/03/19 0651 01/04/19 1215 Results 24hrs Laboratory Tests Test 01/03/19 16:59 01/03/19 18:39 01/03/19 19:15 01/03/19 20:35 Bedside Glucose 130 113 Sodium Level 122 L Potassium Level 3.5 Chloride Level 87 L Carbon Dioxide Level 29 Anion Gap 6 Blood Urea Nitrogen 9 Creatinine 0.64 Est Glomerular Filtrat > 60 Rate mL/min Glucose Level 125 Calcium Level 7.2 L Total Bilirubin 0.7 Direct Bilirubin 0.00 Indirect Bilirubin 0.7 Aspartate Amino 133 H Transf (AST/SGOT) Alanine 81 H Aminotransferase (ALT/SG PT) Alkaline Phosphatase 45 Total Protein 5.3 L Albumin 3.0 L Globulin 2.30 Albumin/Globulin Ratio 1.30 Urine Microscopic RBC 13 H Urine Microscopic WBC 3 Urine Osmolality 148 L Urine Random Sodium < 13 L Test 01/03/19 21:00 01/04/19 00:22 01/04/19 04:55 01/04/19 08:03 Sodium Level 125 L 125 L 131 L Potassium Level 3.8 3.7 3.5 Chloride Level 89 L 92 L 100 Carbon Dioxide Level 28 27 27 Anion Gap 8 6 4 L Blood Urea Nitrogen 9 9 9 Creatinine 0.71 0.67 0.77 Est Glomerular Filtrat > 60 > 60 > 60 Rate mL/min Glucose Level 120 112 105 Calcium Level 7.5 L 7.2 L 7.5 L Total Bilirubin 0.6 Direct Bilirubin 0.00 Indirect Bilirubin 0.6 Aspartate Amino 134 H Transf (AST/SGOT) Alanine 84 H Aminotransferase (ALT/SG PT) Alkaline Phosphatase 44 Total Protein 5.4 L Albumin 3.1 L Globulin 2.30 Albumin/Globulin Ratio 1.34 Magnesium Level 2.2 Ammonia 12 Creatine Kinase 1025 #H Vitamin B12 Level 809 Folate 12.6 Thyroid Stimulating 0.973 Hormone (TSH) Random Cortisol 9.4 Bedside Glucose 105 Test 01/04/19 08:57 01/04/19 12:15 Sodium Level 131 L 132 L Potassium Level 3.4 L 3.3 L Chloride Level 99 100 Carbon Dioxide Level 26 27 Anion Gap 6 5 Blood Urea Nitrogen 9 9 Creatinine 0.71 0.72 Est Glomerular Filtrat > 60 > 60 Rate mL/min Glucose Level 118 152 Calcium Level 7.4 L 7.6 L Bedside Glucose 140 Subjective 24 Hr Interval Summary Constitutional: disoriented Exam/Review of Systems Exam Vitals Vital Signs Date Temp Pulse Resp B/P (MAP) Pulse Ox O2 O2 Flow FiO2 Time Delivery Rate 01/04/19 97 14 132/81 99 Room Air 15:00 (98) 01/04/19 99.7 12:00 01/03/19 2.0 05:12 Intake and Output 01/03/19 01/03/19 01/04/19 1515:00 23:00 07:00 IntakeIntake Total 1311 ml 1390 ml 975 ml OutputOutput Total 975 ml 1650 ml 1650 ml BalanceBalance 336 ml -260 ml -675 ml Psych: confusion Respiratory: clear to auscultation Cardiovascular: regular rate and rhythm Gastrointestinal: soft; No distended Musculoskeletal: nl extremities to inspection Results Results 24hrs Laboratory Tests Test 01/03/19 16:59 01/03/19 18:39 01/03/19 19:15 01/03/19 20:35 Bedside Glucose 130 113 Sodium Level 122 L Potassium Level 3.5 Chloride Level 87 L Carbon Dioxide Level 29 Anion Gap 6 Blood Urea Nitrogen 9 Creatinine 0.64 Est Glomerular Filtrat > 60 Rate mL/min Glucose Level 125 Calcium Level 7.2 L Total Bilirubin 0.7 Direct Bilirubin 0.00 Indirect Bilirubin 0.7 Aspartate Amino 133 H Transf (AST/SGOT) Alanine 81 H Aminotransferase (ALT/SG PT) Alkaline Phosphatase 45 Total Protein 5.3 L Albumin 3.0 L Globulin 2.30 Albumin/Globulin Ratio 1.30 Urine Microscopic RBC 13 H Urine Microscopic WBC 3 Urine Osmolality 148 L Urine Random Sodium < 13 L Test 01/03/19 21:00 01/04/19 00:22 01/04/19 04:55 01/04/19 08:03 Sodium Level 125 L 125 L 131 L Potassium Level 3.8 3.7 3.5 Chloride Level 89 L 92 L 100 Carbon Dioxide Level 28 27 27 Anion Gap 8 6 4 L Blood Urea Nitrogen 9 9 9 Creatinine 0.71 0.67 0.77 Est Glomerular Filtrat > 60 > 60 > 60 Rate mL/min Glucose Level 120 112 105 Calcium Level 7.5 L 7.2 L 7.5 L Total Bilirubin 0.6 Direct Bilirubin 0.00 Indirect Bilirubin 0.6 Aspartate Amino 134 H Transf (AST/SGOT) Alanine 84 H Aminotransferase (ALT/SG PT) Alkaline Phosphatase 44 Total Protein 5.4 L Albumin 3.1 L Globulin 2.30 Albumin/Globulin Ratio 1.34 Magnesium Level 2.2 Ammonia 12 Creatine Kinase 1025 #H Vitamin B12 Level 809 Folate 12.6 Thyroid Stimulating 0.973 Hormone (TSH) Random Cortisol 9.4 Bedside Glucose 105 Test 01/04/19 08:57 01/04/19 12:15 Sodium Level 131 L 132 L Potassium Level 3.4 L 3.3 L Chloride Level 99 100 Carbon Dioxide Level 26 27 Anion Gap 6 5 Blood Urea Nitrogen 9 9 Creatinine 0.71 0.72 Est Glomerular Filtrat > 60 > 60 Rate mL/min Glucose Level 118 152 Calcium Level 7.4 L 7.6 L Bedside Glucose 140 Medications Medication Current Medications Ondansetron HCl (Zofran Inj) 4 mg Q6H PRN IV NAUSEA AND/OR VOMITING Last administered on 01/03/19at 20:36; Admin Dose 4 MG; Start 01/03/19 at 06:00 Acetaminophen (Tylenol Liquid) 650 mg Q6H PRN PO PAIN LEVEL 1-3 OR FEVER; Start 01/03/19 at 06:00 Pantoprazole (Protonix Iv) 40 mg DAILY@06 IV Last administered on 01/04/19at 07:00; Admin Dose 40 MG; Start 01/03/19 at 06:00 Folic Acid (Folic Acid) 1 mg DAILY PO Last administered on 01/04/19at 08:04; Admin Dose 1 MG; Start 01/03/19 at 09:00 Multivitamins Therapeutic (Theragran) 1 tab DAILY PO Last administered on 01/04/19 08:04; Admin Dose 1 TAB; Start 01/03/19 at 09:00 Diagnostic Test (Pha) (Accu-Chek) 1 ea 02 XX ; Start 01/04/19 at 02:00 Insulin Aspart (Novolog Insulin Pen) NOVOLOG *MILD* ALGORITHM WITH MEALS BEDTIME SC Last administered on 01/03/19at 12:32; Admin Dose 1 UNIT; Start 01/03/19 at 07:35 Miscellaneous Information 1 ea NOTE XX ; Start 01/03/19 at 08:00 Glucose (Glutose) 15 gm Q15M PRN PO DECREASED GLUCOSE; Start 01/03/19 at 08:00 Glucose (Glutose) 22.5 gm Q15M PRN PO DECREASED GLUCOSE; Start 01/03/19 at 08:00 Dextrose (D50w Syringe) 25 ml Q15M PRN IV DECREASED GLUCOSE; Start 01/03/19 at 08:00 Dextrose (D50w Syringe) 50 ml Q15M PRN IV DECREASED GLUCOSE; Start 01/03/19 at 08:00 Glucagon (Glucagen) 1 mg Q15M PRN IM DECREASED GLUCOSE; Start 01/03/19 at 08:00 Glucose (Glutose) 15 gm Q15M PRN BUCCAL DECREASED GLUCOSE; Start 01/03/19 at 08: 00 Thiamine HCl 500 mg/Sodium Chloride 255 ml @ 255 mls/hr Q8H IV Last administered on 01/04/19at 16:27; Admin Dose 255 MLS/HR; Start 01/03/19 at 16:00; Stop 01/05/19 at 15:59 Enalaprilat (Vasotec Iv) 1.25 mg Q4H PRN IV ELEVATED BLOOD PRESSURE; Start 01/03/19 at 10:00 Chlordiazepoxide (Librium) 50 mg TID PRN PO withdrawal; Start 01/04/19 at 09:00 Lorazepam (Ativan) 2 mg Q2 PRN IV ANXIETY Last administered on 01/04/19at 13:55; Admin Dose 2 MG; Start 01/03/19 at 18:00 Dextrose 1,000 ml @ 100 mls/hr Q10H IV Last administered on 4/8/19at 16:28; Admin Dose 100 MLS/HR; Start 01/04/19 at 07:00 Potassium Chloride 50 ml @ 50 mls/hr K PROTOCOL PRN IVPB PENDING LAB VALUE Last administered on 01/04/19 16:27; Admin Dose 50 MLS/HR; Start 01/04/19 at 14:00 LISA EATON Jan 04, 2019 16:53
--- NOTE | 2019-01-04 21:10 | EEG ---
EEG NOTE Report Details DATE OF TEST: 01/04/19 HISTORY: The patient is a 63-year-old M who presents with seizure and altered mental status. This EEG is requested to evaluate for an epileptic disorder. SEDATION: None. CONDITIONS OF RECORDING: This EEG was recorded digitally on the [employer] machine, using the International 10-20 System of electrodes plus anterior temporals and [place]. STATES SAMPLED: Wakefulness through stage II sleep. FINDINGS: During wakefulness, there is an 8Hz posterior dominant rhythm. There is excess beta activity. There is a normal [id number] frequency-amplitude gradient. The remainder of the awake background is normal. Photic stimulation does not elicit any definite driving responses or epileptiform discharges. Hyperventilation was not performed. The patient passed into sleep, reaching stage II, characterized by normal and symmetrical vertex waves and spindles. No asymmetries, focal abnormalities or epileptiform discharges were seen. Incidentally, the single-channel monitoring tech did not reveal any obvious cardiac arrhythmia. IMPRESSION: Abnormal electroencephalogram due to: excess beta activity. COMMENT: Excess beta activity may be attributable to the use of medications, including but not limited to benzodiazepines or barbiturates. FLORIN TERRELL Jan 04, 2019 21:10
[2019-01-04] MEDS ORDERED: METOCLOPRAMIDE 10 MG INJ IV ONE (22:00)
[2019-01-05] VITALS (11 sets, daily range): BP systolic 120–134; BP diastolic 58–77; PULSE 96–119; RESP 16–20
[2019-01-05] MEDS: ACCU-CHEK XX SCH (01:15)
[2019-01-05] MEDS: LORAZEPAM 2 MG INJ IV PRN (03:39)
[2019-01-05] MEDS ORDERED: METOCLOPRAMIDE 10 MG INJ IV ONE ×2 (06:00→22:00)
[2019-01-05] MEDS: DEXTROSE 5% 1,000 ML IV SCH (06:13)
[2019-01-05] MEDS: INSULIN ASPART [NOVOLOG] 3 ML PEN SC SCH (08:00)
[2019-01-05] MEDS: THIAMINE 500 MG in SOD CHLORIDE 0.9% 250 ML IV SCH (08:25)
[2019-01-05] MEDS ORDERED: CHLORDIAZEPOXIDE 25 MG CAP PO SCH (09:00)
[2019-01-05] MEDS: FOLIC ACID 1 MG TAB PO SCH (09:09)
[2019-01-05] MEDS: MULTIVITAMINS THERAPEUTIC TAB PO SCH (09:09)
--- NOTE | 2019-01-05 09:16 | PN ---
DATE: 01/05/2019 SUBJECTIVE: The patient is stable, no events overnight. No fevers, chills, nausea, vomiting. OBJECTIVE: VITAL SIGNS: Blood pressure is 134/64, respirations 16, pulse 103, temperature 98.3. HEENT: Head is normocephalic. NECK: Supple. HEART: Regular rate. LUNGS: Show diminished breath sounds at the base. ABDOMEN: Soft, nontender to palpation without rebound or guarding. EXTREMITIES: Negative for clubbing, cyanosis, no edema. DERMATOLOGIC: No rashes. MUSCULOSKELETAL: No joint effusion. NEUROLOGIC: No change in exam. MEDICATIONS: The patient's medications have been reviewed. LABORATORY DATA: The laboratory data from 01/05/2019 was reviewed. ASSESSMENT AND PLAN: 1. Hyponatremia, etiology is multifactorial secondary to hypovolemia in conjunction with low solute intake, i.e., . The patient's sodium level has improved approximately 17 mEq in a 48-hour perio d. At this point, will discontinue D5 water. Continue to monitor serial sodium levels closely. 2. Hypokalemia. Continue to monitor and replete as needed. 3. Acute encephalopathy. Etiology is multifactorial secondary to hyponatremia, ETOH withdrawal. Co ntinue to monitor. 4. Lactic acidosis, resolved. 5. ETOH use. Continue medical management. 6. Thrombocytopenia. Continue to monitor. Dictated By: CASANDRA STOVER DO NR/NTS Conf#: [id number] DID#: [id number] CC: LISA EATON MD; LOBITO DURHAM MD;*End*
--- NOTE | 2019-01-05 10:52 | CONS ---
Assessment/Plan Assessment/Plan Hospital Course 63 M c/ known ETOH abuse, who presents for evaluation of seizure and ams in the context of ETOH cessation. Na 117 The clinical picture is most consistent w/ provoked seizure.. Epilepsy is unlikely. Head CT was unrevealing. Baseline EEG was without epileptiform activity. P: Defer AED Tx for now Ativan iv prn prolonged seizure or cluster Other management and supportive care per primary Will sign off for now; please consult w/ adnl ? as necessary Consultation Date/Type/Reason Admit Date/Time Jan 03, 2019 at 05:29 Type of Consult Neurology Reason for Consultation seizure Requesting Provider: LOBITO DURHAM Date/Time of Note DATE: 01/05/19 TIME: 10:51 24 HR Interval Summary Free Text/Dictation Tx to telemetry Exam Vital Signs Vitals Vital Signs Date Temp Pulse Resp B/P (MAP) Pulse Ox O2 O2 Flow FiO2 Time Delivery Rate 01/05/19 101 08:01 01/05/19 98.3 16 134/64 98 07:37 (87) 01/05/19 Room Air 04:06 01/03/19 2.0 05:12 Intake and Output 01/04/19 01/04/19 01/05/19 1515:00 23:00 07:00 IntakeIntake Total 1585 ml 1705 ml 455 ml OutputOutput Total 1250 ml 600 ml 1500 ml BalanceBalance 335 ml 1105 ml -1045 ml Exam PE: Gen Appearance: No Apparent Distress HEENT: Normocephalic Cardiovascular: Regular rate Abdomen: Soft Extremities: Dry NE: The patient was sedated... disoriented...Difficult to redirect; Able to follow simple axial and appendicular commands with prompting. Cranial nerve examination was somewhat limited by mental status. Pupils were equal and reactive to light. There was no afferent pupillary defect. Funduscopic examination was limited. Face was grossly symmetric, w/ present corneal reflexes. Tone was normal. Muscle bulk was normal. I did not see fasciculations. The patient moved his limbs symmetrically. Coordination and gait testing was limited by mental status. Arm and leg reflexes were within normal limits and symmetric. Hobson's sign was absent. Plantar responses were flexor. FLORIN TERRELL Jan 05, 2019 10:52 REMINGTON WILSON NP Jan 05, 2019 14:44
--- NOTE | 2019-01-05 14:42 | PN ---
Date/Time of Note Date/Time of Note DATE: 01/05/19 TIME: 14:41 Assessment/Plan VTE Prophylaxis Risk score (from Ns)>0 risk: 4 SCD applied (from Ns): Yes Pharmacological prophylaxis: NA/contraindicated Pharm contraindication: low risk/ambulating Lines/Catheters IV [facility] Saline Lock Assessment/Plan Hospital Course 63 yo male with alcohol use d/o brought in by family for confusion in setting of alcohol binge. Found to have profound hyponatremia, hypokalemia and encephalopathy Hyponatremia: Improving - Suspect tea and toast given clinical picture -Nephrology managing fluids Hypokalemia: - Replete as needed Hypomagnesemia: - Replete as needed Acute encephalopathy secondary to hyponatremia and likely Wernicke's -Continue fluids and thiamine supplementation Alcohol withdrawal syndrome: - Librium PRN, restraints Protein calorie malnutrition Thrombocytopenia; - Likely related to etoh use. No evidence of cirrhosis on US DC planning: Restraints now off, decrease Ativan dose, anticipate discharge in the next several days Result Diagram: 01/03/19 0651 01/05/19 0020 Results 24hrs Laboratory Tests Test 01/04/19 16:35 01/04/19 17:52 01/04/19 19:04 01/04/19 20:14 Sodium Level 133 L 133 L Potassium Level 3.9 3.6 Chloride Level 103 102 Carbon Dioxide Level 26 27 Anion Gap 4 L 4 L Blood Urea Nitrogen 8 8 Creatinine 0.65 0.76 Est Glomerular Filtrat > 60 > 60 Rate mL/min Glucose Level 127 146 Calcium Level 7.8 L 7.9 L Bedside Glucose 116 137 Test 01/05/19 00:20 01/05/19 05:27 01/05/19 08:21 Sodium Level 134 L Potassium Level 3.5 Chloride Level 101 Carbon Dioxide Level 26 Anion Gap 7 Blood Urea Nitrogen 10 Creatinine 0.76 Est Glomerular Filtrat > 60 Rate mL/min Glucose Level 119 Calcium Level 7.7 L Creatine Kinase 5754 #H Bedside Glucose 163 Subjective 24 Hr Interval Summary Constitutional: disoriented Exam/Review of Systems Exam Vitals Vital Signs Date Temp Pulse Resp B/P (MAP) Pulse Ox O2 O2 Flow FiO2 Time Delivery Rate 01/05/19 98.9 104 16 123/76 96 12:08 (92) 01/05/19 Room Air 04:06 01/03/19 2.0 05:12 Intake and Output 01/04/19 01/04/19 01/05/19 1515:00 23:00 07:00 IntakeIntake Total 1585 ml 1705 ml 455 ml OutputOutput Total 1250 ml 600 ml 1500 ml BalanceBalance 335 ml 1105 ml -1045 ml Psych: confusion Respiratory: clear to auscultation Cardiovascular: regular rate and rhythm Gastrointestinal: soft; No distended Musculoskeletal: nl extremities to inspection Results Results 24hrs Laboratory Tests Test 01/04/19 16:35 01/04/19 17:52 01/04/19 19:04 01/04/19 20:14 Sodium Level 133 L 133 L Potassium Level 3.9 3.6 Chloride Level 103 102 Carbon Dioxide Level 26 27 Anion Gap 4 L 4 L Blood Urea Nitrogen 8 8 Creatinine 0.65 0.76 Est Glomerular Filtrat > 60 > 60 Rate mL/min Glucose Level 127 146 Calcium Level 7.8 L 7.9 L Bedside Glucose 116 137 Test 01/05/19 00:20 01/05/19 05:27 01/05/19 08:21 Sodium Level 134 L Potassium Level 3.5 Chloride Level 101 Carbon Dioxide Level 26 Anion Gap 7 Blood Urea Nitrogen 10 Creatinine 0.76 Est Glomerular Filtrat > 60 Rate mL/min Glucose Level 119 Calcium Level 7.7 L Creatine Kinase 5754 #H Bedside Glucose 163 Medications Medication Current Medications Ondansetron HCl (Zofran Inj) 4 mg Q6H PRN IV NAUSEA AND/OR VOMITING Last administered on 01/03/19at 20:36; Admin Dose 4 MG; Start 01/03/19 at 06:00 Acetaminophen (Tylenol Liquid) 650 mg Q6H PRN PO PAIN LEVEL 1-3 OR FEVER; Start 01/03/19 at 06:00 Pantoprazole (Protonix Iv) 40 mg DAILY@06 IV Last administered on 01/04/19at 07:00; Admin Dose 40 MG; Start 01/03/19 at 06:00 Folic Acid (Folic Acid) 1 mg DAILY PO Last administered on 01/05/19at 09:09; Admin Dose 1 MG; Start 01/03/19 at 09:00 Multivitamins Therapeutic (Theragran) 1 tab DAILY PO Last administered on 01/05/19at 09:09; Admin Dose 1 TAB; Start 01/03/19 at 09:00 Miscellaneous Information 1 ea NOTE XX ; Start 01/03/19 at 08:00 Glucose (Glutose) 15 gm Q15M PRN PO DECREASED GLUCOSE; Start 01/03/19 at 08:00 Glucose (Glutose) 22.5 gm Q15M PRN PO DECREASED GLUCOSE; Start 01/03/19 at 08:00 Dextrose (D50w Syringe) 25 ml Q15M PRN IV DECREASED GLUCOSE; Start 01/03/19 at 08:00 Dextrose (D50w Syringe) 50 ml Q15M PRN IV DECREASED GLUCOSE; Start 01/03/19 at 08:00 Glucagon (Glucagen) 1 mg Q15M PRN IM DECREASED GLUCOSE; Start 01/03/19 at 08:00 Glucose (Glutose) 15 gm Q15M PRN BUCCAL DECREASED GLUCOSE; Start 01/03/19 at 08:00 Thiamine HCl 500 mg/Sodium Chloride 255 ml @ 255 mls/hr Q8H IV Last administered on 01/05/19at 08:25; Admin Dose 255 MLS/HR; Start 01/03/19 at 16:00; Stop 01/05/19 at 15:59 Enalaprilat (Vasotec Iv) 1.25 mg Q4H PRN IV ELEVATED BLOOD PRESSURE; Start 01/03/19 at 10:00 Chlordiazepoxide (Librium) 50 mg TID PRN PO withdrawal; Start 01/04/19 at 09:00 Potassium Chloride 50 ml @ 50 mls/hr K PROTOCOL PRN IVPB PENDING LAB VALUE Last administered on 01/04/19at 16:27; Admin Dose 50 MLS/HR; Start 01/04/19 at 14:00 Lorazepam (Ativan) 1 mg Q3H PRN IV ANXIETY; Start 01/05/19 at 11:00 LISA EATON Jan 05, 2019 14:42
[2019-01-05] MEDS: FAMOTIDINE 20 MG TAB PO SCH (22:16)
[2019-01-05] MEDS: ACETAMINOPHEN 325 MG TAB PO PRN (22:16)
[2019-01-05] MEDS: CHLORDIAZEPOXIDE 25 MG CAP PO PRN (22:20)
[2019-01-06] VITALS (11 sets, daily range): BP systolic 121–162; BP diastolic 64–87; PULSE 89–108; RESP 17–19
[2019-01-06] MEDS: PANTOPRAZOLE (EC) 40 MG TAB PO SCH (05:52)
[2019-01-06] MEDS: FOLIC ACID 1 MG TAB PO SCH (08:08)
[2019-01-06] MEDS: FAMOTIDINE 20 MG TAB PO SCH ×2 (08:08→21:24)
[2019-01-06] MEDS: CHLORDIAZEPOXIDE 25 MG CAP PO PRN ×2 (08:08→21:23)
[2019-01-06] MEDS: MULTIVITAMINS THERAPEUTIC TAB PO SCH (08:08)
--- NOTE | 2019-01-06 09:28 | PN ---
DATE: 01/06/2019 SUBJECTIVE: The patient is stable, no events overnight. OBJECTIVE: VITAL SIGNS: Blood pressure is 162/87, respirations 19, pulse 89, temperature 98.1. HEENT: Head is normocephalic. NECK: Supple. HEART: Regular rate. LUNGS: Show diminished breath sounds at the base. ABDOMEN: Soft, nontender to palpation without rebound or guarding. EXTREMITIES: Negative for clubbing, cyanosis, no edema. DERMATOLOGIC: No rashes. MUSCULOSKELETAL: No joint effusion. NEUROLOGIC: No change in exam. MEDICATIONS: Reviewed. LABORATORY DATA: Reviewed. ASSESSMENT AND PLAN: 1. Hypernatremia, etiology is multifactorial. The patient's sodium levels have corrected, we will c ontinue to monitor closely. 2. Hypomagnesemia, possibly due to alcohol use. We will replete with magnesium sulfate. 3. Hypokalemia. Continue to monitor and replete as needed. 4. Acute encephalopathy, etiology is multifactorial. Continue to monitor. Follow up with neurology . 5. Seizure disorder. Continue to monitor. Follow up with neurology. 6. Lactic acidosis, resolved. 7. ETOH use. Continue medical management. 8. Thrombocytopenia. Continue to monitor. Dictated By: CASANDRA STOVER DO NR/NTS Conf#: [id number] DID#: [id number] CC: LISA EATON MD; CASANDRA STOVER DO; LOBITO DURHAM MD;*End*
[2019-01-06] MEDS ORDERED: MAGNESIUM SULFATE 2 GM/50 ML 50 ML IVPB ONE (10:00)
--- NOTE | 2019-01-06 14:06 | PN ---
Date/Time of Note Date/Time of Note DATE: 01/06/19 TIME: 14:04 Assessment/Plan VTE Prophylaxis Risk score (from Nsg)>0 risk: 4 Pharmacological prophylaxis: NA/contraindicated Pharm contraindication: blood coag disorder Lines/Catheters IV Catheter Type (from Nrs): Saline Lock Assessment/Plan Hospital Course 63 yo male with alcohol use d/o brought in by family for confusion in setting of alcohol binge. Found to have profound hyponatremia, hypokalemia and encephalopathy Hyponatremia: Improving - Suspect tea and toast given clinical picture -Nephrology managing fluids Hypokalemia: - Replete as needed Hypomagnesemia: - Replete as needed Acute encephalopathy secondary to hyponatremia and likely Wernicke's -Continue fluids and thiamine supplementation -Patient is having difficulty ambulating Alcohol withdrawal syndrome: - Librium PRN, restraints Protein calorie malnutrition Thrombocytopenia; - Likely related to etoh use. No evidence of cirrhosis on US DC planning: Restraints now off, continue PT as patient is having difficulty ambulating, nursing placement if patient unable to ambulate Result Diagram: 01/06/1940 01/06/19 0540 Results 24hrs Laboratory Tests Test 01/06/19 05:40 White Blood Count 4.2 #L Red Blood Count 3.76 L Hemoglobin 10.5 L Hematocrit 31.7 L Mean Corpuscular Volume 84.3 Mean Corpuscular Hemoglobin 27.9 L Mean Corpuscular Hemoglobin Concent 33.1 Red Cell Distribution Width 14.0 Platelet Count 118 #L Mean Platelet Volume 11.1 H Immature Granulocytes % 0.700 H Neutrophils % 59.4 Lymphocytes % 21.5 Monocytes % 15.1 H Eosinophils % 3.1 Basophils % 0.2 Nucleated Red Blood Cells % 0.0 Immature Granulocytes # 0.030 Neutrophils # 2.5 Lymphocytes # 0.9 Monocytes # 0.6 Eosinophils # 0.1 Basophils # 0.0 Nucleated Red Blood Cells # 0.0 Sodium Level 136 Potassium Level 3.6 Chloride Level 102 Carbon Dioxide Level 28 Anion Gap 6 Blood Urea Nitrogen 10 Creatinine 0.71 Est Glomerular Filtrat Rate mL/min > 60 Glucose Level 128 Calcium Level 8.2 L Phosphorus Level 3.1 Magnesium Level 1.5 L Creatine Kinase 71788 #H Subjective 24 Hr Interval Summary Constitutional: disoriented Exam/Review of Systems Exam Vitals Vital Signs Date Temp Pulse Resp B/P (MAP) Pulse Ox O2 O2 Flow FiO2 Time Delivery Rate 01/06/19 93 13:10 01/06/19 98.1 18 135/73 91 11:02 (93) 01/05/19 Room Air 04:06 01/03/19 2.0 05:12 Intake and Output 01/05/19 01/05/19 01/06/19 1515:00 23:00 07:00 IntakeIntake Total 255 ml 980 ml 60 ml OutputOutput Total 1000 ml 1600 ml BalanceBalance 255 ml -20 ml -1540 ml Psych: confusion Respiratory: clear to auscultation Cardiovascular: regular rate and rhythm Gastrointestinal: soft; No distended Musculoskeletal: nl extremities to inspection Results Results 24hrs Laboratory Tests Test 01/06/19 05:40 White Blood Count 4.2 #L Red Blood Count 3.76 L Hemoglobin 10.5 L Hematocrit 31.7 L Mean Corpuscular Volume 84.3 Mean Corpuscular Hemoglobin 27.9 L Mean Corpuscular Hemoglobin Concent 33.1 Red Cell Distribution Width 14.0 Platelet Count 118 #L Mean Platelet Volume 11.1 H Immature Granulocytes % 0.700 H Neutrophils % 59.4 Lymphocytes % 21.5 Monocytes % 15.1 H Eosinophils % 3.1 Basophils % 0.2 Nucleated Red Blood Cells % 0.0 Immature Granulocytes # 0.030 Neutrophils # 2.5 Lymphocytes # 0.9 Monocytes # 0.6 Eosinophils # 0.1 Basophils # 0.0 Nucleated Red Blood Cells # 0.0 Sodium Level 136 Potassium Level 3.6 Chloride Level 102 Carbon Dioxide Level 28 Anion Gap 6 Blood Urea Nitrogen 10 Creatinine 0.71 Est Glomerular Filtrat Rate mL/min > 60 Glucose Level 128 Calcium Level 8.2 L Phosphorus Level 3.1 Magnesium Level 1.5 L Creatine Kinase 22029 #H Medications Medication Current Medications Ondansetron HCl (Zofran Inj) 4 mg Q6H PRN IV NAUSEA AND/OR VOMITING Last administered on 01/03/19at 20:36; Admin Dose 4 MG; Start 01/03/19 at 06:00 Acetaminophen (Tylenol Liquid) 650 mg Q6H PRN PO PAIN LEVEL 1-3 OR FEVER; Start 01/03/19 at 06:00 Folic Acid (Folic Acid) 1 mg DAILY PO Last administered on 01/06/19at 08:08; Admin Dose 1 MG; Start 01/03/19 at 09:00 Multivitamins Therapeutic (Theragran) 1 tab DAILY PO Last administered on 01/06/19at 08:08; Admin Dose 1 TAB; Start 01/03/19 at 09:00 Miscellaneous Information 1 ea NOTE XX ; Start 01/03/19 at 08:00 Glucose (Glutose) 15 gm Q15M PRN PO DECREASED GLUCOSE; Start 01/03/19 at 08:00 Glucose (Glutose) 22.5 gm Q15M PRN PO DECREASED GLUCOSE; Start 01/03/19 at 08:00 Dextrose (D50w Syringe) 25 ml Q15M PRN IV DECREASED GLUCOSE; Start 01/03/19 at 08:00 Dextrose (D50w Syringe) 50 ml Q15M PRN IV DECREASED GLUCOSE; Start 01/03/19 at 08:00 Glucagon (Glucagen) 1 mg Q15M PRN IM DECREASED GLUCOSE; Start 01/03/19 at 08:00 Glucose (Glutose) 15 gm Q15M PRN BUCCAL DECREASED GLUCOSE; Start 01/03/19 at 0 8:00 Enalaprilat (Vasotec Iv) 1.25 mg Q4H PRN IV ELEVATED BLOOD PRESSURE; Start 01/03/19 at 10:00 Chlordiazepoxide (Librium) 50 mg TID PRN PO withdrawal Last administered on 01/06/19at 08:08; Admin Dose 50 MG; Start 01/04/19 at 09:00 Potassium Chloride 50 ml @ 50 mls/hr K PROTOCOL PRN IVPB PENDING LAB VALUE Last administered on 01/04/19at 16:27; Admin Dose 50 MLS/HR; Start 01/04/19 at 14:00 Lorazepam (Ativan) 1 mg Q3H PRN IV ANXIETY; Start 01/05/19 at 11:00 Pantoprazole (Protonix Tab) 40 mg DAILY@06 PO Last administered on 01/06/19at 05:52; Admin Dose 40 MG; Start 01/06/19 at 06:00 Acetaminophen (Tylenol Tab) 650 mg Q6H PRN PO MILD PAIN(1-3)OR ELEVATED TEMP Last administered on 01/05/19at 22:16; Admin Dose 650 MG; Start 01/05/19 at 22:00 Famotidine (Pepcid) 20 mg BID PO Last administered on 01/06/19at 08:08; Admin Dose 20 MG; Start 01/05/19 at 23:00 LISA EATON Jan 06, 2019 14:06
[2019-01-06] MEDS: ACETAMINOPHEN 325 MG TAB PO PRN (21:24)
[2019-01-06] MEDS: LORAZEPAM 2 MG INJ IV PRN (22:46)
[2019-01-07] VITALS (13 sets, daily range): BP systolic 109–145; BP diastolic 61–86; PULSE 79–111; RESP 17–19
[2019-01-07] MEDS ORDERED: SOD CHLORIDE 0.9% 250 ML IV ONE (00:30)
[2019-01-07] MEDS: PANTOPRAZOLE (EC) 40 MG TAB PO SCH (05:23)
[2019-01-07] MEDS: FAMOTIDINE 20 MG TAB PO SCH ×2 (08:10→21:36)
[2019-01-07] MEDS: MULTIVITAMINS THERAPEUTIC TAB PO SCH (08:10)
[2019-01-07] MEDS: CHLORDIAZEPOXIDE 25 MG CAP PO PRN (08:10)
[2019-01-07] MEDS: FOLIC ACID 1 MG TAB PO SCH (08:10)
--- NOTE | 2019-01-07 09:33 | PN ---
DATE: 01/07/2019 SUBJECTIVE: The patient remains agitated, confused. The patient continues to have unsteady gait. N o other events noted. No hemoptysis, hematemesis or hematochezia. OBJECTIVE: VITAL SIGNS: Blood pressure is 145/86, respiration 18, pulse 95, temperature 98.4. HEENT: Head is normocephalic. NECK: Supple. HEART: Regular rate. LUNGS: Show diminished breath sounds at the base. ABDOMEN: Soft, nontender to palpation without rebound or guarding. EXTREMITIES: Negative for clubbing, cyanosis, no edema. DERMATOLOGIC: No rashes. MUSCULOSKELETAL: No joint effusion. NEUROLOGIC: No change in exam. MEDICATIONS: Reviewed. LABORATORY DATA: Shows a CK level of 20,000. The patient's BMP otherwise within normal limits. ASSESSMENT AND PLAN: 1. Hyponatremia. Etiology is multifactorial, resolved. 2. Hypomagnesemia. Continue to monitor and replete. 3. Rhabdomyolysis, etiology unclear, possibly due to medications versus trauma. Will start the miladys ent on IV fluids, monitor CK levels closely. 4. Acute encephalopathy, etiology is toxic metabolic. Continue to monitor. 5. Seizure disorder. Continue medical management. 6. ETOH use with withdrawals. Continue medical management. 7. Thrombocytopenia. Continue to monitor. Dictated By: CASANDRA STOVER DO NR/NTS Conf#: [id number] DID#: [id number] CC: LOBITO DURHAM MD; LISA EATON MD;*EndCC*
[2019-01-07] MEDS: SOD CHLORIDE 0.9% 1,000 ML IV SCH ×2 (09:46→21:36)
--- NOTE | 2019-01-07 14:44 | PN ---
Date/Time of Note Date/Time of Note DATE: 01/07/19 TIME: 14:40 Assessment/Plan VTE Prophylaxis Risk score (from Nsg)>0 risk: 5 Pharmacological prophylaxis: NA/contraindicated Pharm contraindication: blood coag disorder Lines/Catheters IV Catheter Type (from Nrsg): Saline Lock Assessment/Plan Hospital Course 63 yo male with alcohol use d/o brought in by family for confusion in setting of alcohol binge. Found to have profound hyponatremia, hypokalemia and encephalopathy Hyponatremia: Resolved - Suspect tea and toast given clinical picture -Nephrology managing fluids Hypokalemia: - Replete as needed Hypomagnesemia: - Replete as needed Acute encephalopathy with debility secondary to Wernicke's -Continue fluids and thiamine supplementation -Patient is having difficulty ambulating, continue PT Alcohol withdrawal syndrome: -Patient is now out of the window for withdrawals - Librium PRN Protein calorie malnutrition Thrombocytopenia; - Likely related to etoh use. No evidence of cirrhosis on US DC planning: Restraints now off, continue PT as patient is having difficulty ambulating, nursing placement if patient unable to ambulate or home with family if can ambulate Result Diagram: 01/06/19 0540 01/07/19 0604 Results 24hrs Laboratory Tests Test 01/07/19 06:04 Sodium Level 137 Potassium Level 3.8 Chloride Level 99 Carbon Dioxide Level 31 Anion Gap 7 Blood Urea Nitrogen 11 Creatinine 0.74 Est Glomerular Filtrat Rate mL/min > 60 Glucose Level 108 Calcium Level 8.5 Phosphorus Level 4.0 Magnesium Level 1.7 Creatine Kinase 56296 H Subjective 24 Hr Interval Summary Constitutional: disoriented Exam/Review of Systems Exam Vitals Vital Signs Date Temp Pulse Resp B/P (MAP) Pulse Ox O2 O2 Flow FiO2 Time Delivery Rate 01/07/19 102 12:19 01/07/19 98.2 18 109/66 94 11:33 (80) 01/05/19 Room Air 04:06 Intake and Output 01/06/19 01/06/19 01/07/19 1515:00 23:00 07:00 IntakeIntake Total 600 ml 800 ml OutputOutput Total 1600 ml 220 ml BalanceBalance -1000 ml 580 ml Psych: confusion Respiratory: clear to auscultation Cardiovascular: regular rate and rhythm Gastrointestinal: soft; No distended Musculoskeletal: nl extremities to inspection Results Results 24hrs Laboratory Tests Test 01/07/19 06:04 Sodium Level 137 Potassium Level 3.8 Chloride Level 99 Carbon Dioxide Level 31 Anion Gap 7 Blood Urea Nitrogen 11 Creatinine 0.74 Est Glomerular Filtrat Rate mL/min > 60 Glucose Level 108 Calcium Level 8.5 Phosphorus Level 4.0 Magnesium Level 1.7 Creatine Kinase 94362 H Medications Medication Current Medications Ondansetron HCl (Zofran Inj) 4 mg Q6H PRN IV NAUSEA AND/OR VOMITING Last administered on 01/03/19at 20:36; Admin Dose 4 MG; Start 01/03/19 at 06:00 Acetaminophen (Tylenol Liquid) 650 mg Q6H PRN PO PAIN LEVEL 1-3 OR FEVER; Start 01/03/19 at 06:00 Folic Acid (Folic Acid) 1 mg DAILY PO Last administered on 01/07/19at 08:10; Admin Dose 1 MG; Start 01/03/19 at 09:00 Multivitamins Therapeutic (Theragran) 1 tab DAILY PO Last administered on 12/28 10/17at 08:10; Admin Dose 1 TAB; Start 01/03/19 at 09:00 Miscellaneous Information 1 ea NOTE XX ; Start 01/03/19 at 08:00 Glucose (Glutose) 15 gm Q15M PRN PO DECREASED GLUCOSE; Start 01/03/19 at 08:00 Glucose (Glutose) 22.5 gm Q15M PRN PO DECREASED GLUCOSE; Start 01/03/19 at 08:00 Dextrose (D50w Syringe) 25 ml Q15M PRN IV DECREASED GLUCOSE; Start 01/03/19 at 08:00 Dextrose (D50w Syringe) 50 ml Q15M PRN IV DECREASED GLUCOSE; Start 01/03/19 at 08:00 Glucagon (Glucagen) 1 mg Q15M PRN IM DECREASED GLUCOSE; Start 01/03/19 at 08:00 Glucose (Glutose) 15 gm Q15M PRN BUCCAL DECREASED GLUCOSE; Start 01/03/19 at 08:00 Enalaprilat (Vasotec Iv) 1.25 mg Q4H PRN IV ELEVATED BLOOD PRESSURE; Start 01/03/19 at 10:00 Chlordiazepoxide (Librium) 50 mg TID PRN PO withdrawal Last administered on 01/07/19at 08:10; Admin Dose 50 MG; Start 01/04/19 at 09:00 Potassium Chloride 50 ml @ 50 mls/hr K PROTOCOL PRN IVPB PENDING LAB VALUE Last administered on 01/04/19 16:27; Admin Dose 50 MLS/HR; Start 01/04/19 at 14:00 Lorazepam (Ativan) 1 mg Q3H PRN IV ANXIETY Last administered on 01/06/19 22:46; Admin Dose 1 MG; Start 01/05/19 at 11:00 Pantoprazole (Protonix Tab) 40 mg DAILY@06 PO Last administered on 01/07/19 05:23; Admin Dose 40 MG; Start 01/06/19 at 06:00 Acetaminophen (Tylenol Tab) 650 mg Q6H PRN PO MILD PAIN(1-3)OR ELEVATED TEMP Last administered on 01/06/19 21:24; Admin Dose 650 MG; Start 01/05/19 at 22:00 Famotidine (Pepcid) 20 mg BID PO Last administered on 01/07/19 08:10; Admin Dose 20 MG; Start 01/05/19 at 23:00 Sodium Chloride 1,000 ml @ 75 mls/hr [id number] IV Last administered on 01/07/19 09:46; Admin Dose 75 MLS/HR; Start 01/07/19 at 09:30 LISA EATON Jan 07, 2019 14:44
[2019-01-07] MEDS ORDERED: CHLORDIAZEPOXIDE 25 MG CAP PO PRN (15:00)
[2019-01-08] VITALS (10 sets, daily range): BP systolic 106–136; BP diastolic 58–73; PULSE 79–111; RESP 18–21
[2019-01-08] MEDS: PANTOPRAZOLE (EC) 40 MG TAB PO SCH (05:29)
[2019-01-08] MEDS: FAMOTIDINE 20 MG TAB PO SCH ×2 (08:08→21:03)
[2019-01-08] MEDS: FOLIC ACID 1 MG TAB PO SCH (08:08)
[2019-01-08] MEDS: MULTIVITAMINS THERAPEUTIC TAB PO SCH (08:08)
--- NOTE | 2019-01-08 09:48 | PN ---
DATE: 01/08/2019 SUBJECTIVE: The patient is stable, no events overnight. No fevers, chills, nausea, vomiting. No sh ortness of breath. OBJECTIVE: VITAL SIGNS: Blood pressure is 106/58, respirations 21, pulse 80, temperature 98.6. HEENT: Head is normocephalic. NECK: Supple. HEART: Regular rate. LUNGS: Show diminished breath sounds at the base. ABDOMEN: Soft, nontender to palpation. No rebound or guarding. EXTREMITIES: Negative for clubbing, cyanosis, no edema. DERMATOLOGIC: No rashes. MUSCULOSKELETAL: No joint effusion. NEUROLOGIC: No change in exam. MEDICATIONS: The patient's medications have been reviewed. LABORATORY DATA: From 01/08/2019 was reviewed. The patient's CK level is 10,000. Magnesium level 1 .5. ASSESSMENT AND PLAN: 1. Hypernatremia, etiology is multifactorial, resolved. 2. Rhabdomyolysis, etiology is unclear, possibly due to medications versus trauma. The patient's CK levels are improving. Continue IV hydration. 3. Hypomagnesemia. We will replete with magnesium sulfate. 4. Acute encephalopathy, etiology is toxic metabolic. 5. Seizure disorder. Continue medical management. 6. ETOH use. Continue current treatment plan. 7. Thrombocytopenia. Dictated By: CASANDRA STOVER DO NR/NTS Conf#: [id number] DID#: [id number] CC: LOBITO DURHAM MD; CASANDRA STOVER DO; LISA EATON MD;*EndCC*
[2019-01-08] MEDS ORDERED: MAGNESIUM SULFATE 2 GM/50 ML 50 ML IVPB ONE (10:00)
--- NOTE | 2019-01-08 11:45 | PN ---
Date/Time of Note Date/Time of Note DATE: 01/08/19 TIME: 11:43 Assessment/Plan VTE Prophylaxis Risk score (from Nsg)>0 risk: 4 Pharmacological prophylaxis: NA/contraindicated Pharm contraindication: low risk/ambulating Lines/Catheters IV Catheter Type (from Nrsg): Peripheral IV Assessment/Plan Hospital Course 63 yo male with alcohol use d/o brought in by family for confusion in setting of alcohol binge. Found to have profound hyponatremia, hypokalemia and encephalopathy Hyponatremia: Resolved - Suspect tea and toast given clinical picture -Nephrology managing fluids Hypokalemia: Resolved Hypomagnesemia: Resolved Acute encephalopathy with debility secondary to Wernicke's -Mentation and ambulation gradually improving -Continue fluids and thiamine supplementation -Continue PT Alcohol withdrawal syndrome: -Patient is now out of the window for withdrawals -DC Librium Protein calorie malnutrition Thrombocytopenia; - Likely related to etoh use. No evidence of cirrhosis on US DC planning: Restraints now off, continue PT as patient is having difficulty ambulating, nursing placement if patient unable to ambulate or home with family if can ambulate Result Diagram: 01/08/19 0612 01/08/19 0612 Results 24hrs Laboratory Tests Test 01/08/19 06:05 01/08/19 06:12 Creatine Kinase 69591 #H White Blood Count 5.0 Red Blood Count 3.58 L Hemoglobin 10.1 L Hematocrit 30.8 L Mean Corpuscular Volume 86.0 Mean Corpuscular Hemoglobin 28.2 L Mean Corpuscular Hemoglobin Concent 32.8 Red Cell Distribution Width 14.6 H Platelet Count 222 # Mean Platelet Volume 9.6 Immature Granulocytes % 1.600 H Neutrophils % 46.4 Lymphocytes % 23.7 Monocytes % 24.9 H Eosinophils % 2.8 Basophils % 0.6 Nucleated Red Blood Cells % 0.0 Immature Granulocytes # 0.080 H Neutrophils # 2.3 Lymphocytes # 1.2 Monocytes # 1.2 H Eosinophils # 0.1 Basophils # 0.0 Nucleated Red Blood Cells # 0.0 Sodium Level 138 Potassium Level 4.0 Chloride Level 100 Carbon Dioxide Level 30 Anion Gap 8 Blood Urea Nitrogen 10 Creatinine 0.80 Est Glomerular Filtrat Rate mL/min > 60 Glucose Level 139 Calcium Level 8.4 Phosphorus Level 3.7 Magnesium Level 1.5 L Subjective 24 Hr Interval Summary Constitutional: no complaints Exam/Review of Systems Exam Vitals Vital Signs Date Temp Pulse Resp B/P (MAP) Pulse Ox O2 O2 Flow FiO2 Time Delivery Rate 01/08/19 98.6 92 19 117/65 96 11:13 (82) 01/05/19 Room Air 04:06 Intake and Output 01/07/19 01/07/19 01/08/19 1515:00 23:00 07:00 IntakeIntake Total 2100 ml OutputOutput Total 2300 ml BalanceBalance -200 ml Constitutional: alert Psych: confusion Respiratory: clear to auscultation Cardiovascular: regular rate and rhythm Gastrointestinal: soft; No distended Musculoskeletal: nl extremities to inspection Results Results 24hrs Laboratory Tests Test 01/08/19 06:05 01/08/19 06:12 Creatine Kinase 51695 #H White Blood Count 5.0 Red Blood Count 3.58 L Hemoglobin 10.1 L Hematocrit 30.8 L Mean Corpuscular Volume 86.0 Mean Corpuscular Hemoglobin 28.2 L Mean Corpuscular Hemoglobin Concent 32.8 Red Cell Distribution Width 14.6 H Platelet Count 222 # Mean Platelet Volume 9.6 Immature Granulocytes % 1.600 H Neutrophils % 46.4 Lymphocytes % 23.7 Monocytes % 24.9 H Eosinophils % 2.8 Basophils % 0.6 Nucleated Red Blood Cells % 0.0 Immature Granulocytes # 0.080 H Neutrophils # 2.3 Lymphocytes # 1.2 Monocytes # 1.2 H Eosinophils # 0.1 Basophils # 0.0 Nucleated Red Blood Cells # 0.0 Sodium Level 138 Potassium Level 4.0 Chloride Level 100 Carbon Dioxide Level 30 Anion Gap 8 Blood Urea Nitrogen 10 Creatinine 0.80 Est Glomerular Filtrat Rate mL/min > 60 Glucose Level 139 Calcium Level 8.4 Phosphorus Level 3.7 Magnesium Level 1.5 L Medications Medication Current Medications Ondansetron HCl (Zofran Inj) 4 mg Q6H PRN IV NAUSEA AND/OR VOMITING Last administered on 01/03/19at 20:36; Admin Dose 4 MG; Start 01/03/19 at 06:00 Acetaminophen (Tylenol Liquid) 650 mg Q6H PRN PO PAIN LEVEL 1-3 OR FEVER; Start 01/03/19 at 06:00 Folic Acid (Folic Acid) 1 mg DAILY PO Last administered on 01/08/19at 08:08; Admin Dose 1 MG; Start 01/03/19 at 09:00 Multivitamins Therapeutic (Theragran) 1 tab DAILY PO Last administered on 01/08/19at 08:08; Admin Dose 1 TAB; Start 01/03/19 at 09:00 Miscellaneous Information 1 ea NOTE XX ; Start 01/03/19 at 08:00 Glucose (Glutose) 15 gm Q15M PRN PO DECREASED GLUCOSE; Start 01/03/19 at 08:00 Glucose (Glutose) 22.5 gm Q15M PRN PO DECREASED GLUCOSE; Start 01/03/19 at 08:00 Dextrose (D50w Syringe) 25 ml Q15M PRN IV DECREASED GLUCOSE; Start 01/03/19 at 08:00 Dextrose (D50w Syringe) 50 ml Q15M PRN IV DECREASED GLUCOSE; Start 01/03/19 at 08:00 Glucagon (Glucagen) 1 mg Q15M PRN IM DECREASED GLUCOSE; Start 01/03/19 at 08:00 Glucose (Glutose) 15 gm Q15M PRN BUCCAL DECREASED GLUCOSE; Start 01/03/19 at 08:00 Enalaprilat (Vasotec Iv) 1.25 mg Q4H PRN IV ELEVATED BLOOD PRESSURE; Start 01/03/19 at 10:00 Potassium Chloride 50 ml @ 50 mls/hr K PROTOCOL PRN IVPB PENDING LAB VALUE Last administered on 01/04/19at 16:27; Admin Dose 50 MLS/HR; Start 01/04/19 at 14:00 Lorazepam (Ativan) 1 mg Q3H PRN IV ANXIETY Last administered on 01/06/19at 22:46; Admin Dose 1 MG; Start 01/05/19 at 11:00 Pantoprazole (Protonix Tab) 40 mg DAILY@06 PO Last administered on 01/08/19at 05:29; Admin Dose 40 MG; Start 01/06/19 at 06:00 Acetaminophen (Tylenol Tab) 650 mg Q6H PRN PO MILD PAIN(1-3)OR ELEVATED TEMP Last administered on 01/06/19at 21:24; Admin Dose 650 MG; Start 01/05/19 at 22:00 Famotidine (Pepcid) 20 mg BID PO Last administered on 01/08/19at 08:08; Admin Dose 20 MG; Start 01/05/19 at 23:00 Sodium Chloride 1,000 ml @ 75 mls/hr [id number] IV Last administered on 01/07/19at 09:46; Admin Dose 75 MLS/HR; Start 01/07/19 at 09:30 Chlordiazepoxide (Librium) 25 mg TID PRN PO withdrawal; Start 01/07/19 at 15:00 Magnesium Sulfate 50 ml @ 25 mls/hr ONCE ONCE IVPB Last administered on 01/08/19at 11:16; Admin Dose 25 MLS/HR; Start 01/08/19 at 10:00; Stop 01/08/19 at 11:59 LISA EATON Jan 08, 2019 11:45
[2019-01-08] MEDS: THIAMINE 100 MG TAB PO SCH (12:20)
[2019-01-08] MEDS: SOD CHLORIDE 0.9% 1,000 ML IV SCH ×2 (12:21→17:57)
[2019-01-09] MEDS: LORAZEPAM 2 MG INJ IV PRN (00:22)
[2019-01-09] MEDS: SOD CHLORIDE 0.9% 1,000 ML IV SCH ×2 (01:01→06:25)
[2019-01-09 02:00] VITALS: BP 130/68; PULSE 83; RESP 18
[2019-01-09] MEDS: PANTOPRAZOLE (EC) 40 MG TAB PO SCH (06:26)
[2019-01-09 08:05] VITALS: BP 133/78; PULSE 84; RESP 18
[2019-01-09] MEDS: FOLIC ACID 1 MG TAB PO SCH (08:16)
[2019-01-09] MEDS: THIAMINE 100 MG TAB PO SCH (08:17)
[2019-01-09] MEDS: MULTIVITAMINS THERAPEUTIC TAB PO SCH (08:17)
[2019-01-09] MEDS: FAMOTIDINE 20 MG TAB PO SCH (08:17)
--- NOTE | 2019-01-09 09:06 | PN ---
DATE: 01/09/2019 SUBJECTIVE: The patient is stable, no events overnight. No fevers, chills, nausea, vomiting. OBJECTIVE: VITAL SIGNS: Blood pressure is 133/78, respiration 18, pulse 84, temperature 98.8. HEENT: Head is normocephalic. NECK: Supple. HEART: Regular rate. LUNGS: Show diminished breath sounds at the base. ABDOMEN: Soft, nontender to palpation without rebound or guarding. EXTREMITIES: Negative for clubbing, cyanosis, no edema. DERMATOLOGIC: No rashes. MUSCULOSKELETAL: No joint effusion. NEUROLOGIC: No change in exam. MEDICATIONS: The patient's medications have been reviewed. LABORATORY DATA: Has been reviewed. ASSESSMENT AND PLAN: 1. Hyponatremia, etiology is multifactorial, resolved. 2. Rhabdomyolysis, etiology is unclear. The patient's CK levels have improved. Will discontinue IV fluids and monitor. 3. Hypomagnesemia. Continue to monitor and replete as needed. 4. Acute encephalopathy, etiology is toxic metabolic. 5. ETOH abuse. Continue to monitor. Continue current treatment plan. Dictated By: CASANDRA BOOTHE/NTS Conf#: [id number] DID#: [id number] CC: LISA EATON MD; LOBITO DURHAM MD;*[facility]*
[2019-01-09] MEDS: ACETAMINOPHEN 325 MG TAB PO PRN (09:48)
[2019-01-09] MEDS ORDERED: THIA100T56 PO (10:45)
--- NOTE | 2019-01-09 10:46 | PDOCDIS ---
Discharge Instructions CONDITION [id number] Patient Condition: [id number] Good HOME CARE INSTRUCTIONS: [id number] Diet Instructions: [id number] Regular ACTIVITY: [id number] Activity Restrictions: [id number] Slowly Increase Activity FOLLOW UP/APPOINTMENTS Follow-up Plan FOLLOW UP WITH YOUR PRIMARY CARE PHYSICIAN IN 1-2 WEEKS LISA EATON Jan 09, 2019 10:46
--- NOTE | 2019-01-09 10:50 | DS ---
Date/Time of Note Date/Time of Note DATE: 01/09/19 TIME: 10:46 Discharge Summary Admission/Discharge Info Admit Date/Time Jan 03, 2019 at 05:29 Discharge Date/Time January 09, 2019 Discharge Diagnosis 63 yo male with alcohol use d/o brought in by family for confusion in setting of alcohol binge. Found to have profound hyponatremia, hypokalemia and encephalopathy Hyponatremia: Resolved - Suspect tea and toast given clinical picture -Nephrology managing fluids Hypokalemia: Resolved Hypomagnesemia: Resolved Acute encephalopathy with debility secondary to Wernicke's -Mentation and ambulation have improved -Status post fluids and thiamine supplementation, DC with thiamine -Status post PT -Patient to return home with family Alcohol withdrawal syndrome: -Patient is now out of the window for withdrawals -DC Librium Protein calorie malnutrition Thrombocytopenia; - Likely related to etoh use. No evidence of cirrhosis on US Patient Condition: Good Hospital Course Patient is a 63 yo male with alcohol use d/o brought in by family for confusion in setting of alcohol binge. Found to have profound hyponatremia, hypokalemia and encephalopathy. Hyponatremia did resolve with fluids, patient was provided with thiamine supplementation, patient's mentation did gradually improve. Patient did work with PT while patient had difficulty ambulating earlier on, patient became more steady and was able to ambulate on his own. Patient was to be discharged to his sister's home was to be cared for by the family. Alcohol cessation was strongly advised, patient was stable for DC and on the day of discharge patient's vitals, labs and physical exam are stable. Home Meds Active Scripts Thiamine* (Vitamin B-1*) 100 Mg Tablet, 100 MG PO DAILY for 30 Days, #30 TAB Prov:LISA EATON 01/09/19 Follow-up Plan FOLLOW UP WITH YOUR PRIMARY CARE PHYSICIAN IN 1-2 WEEKS Primary Care Provider Care Physician No Primary Time spent on discharge: > 30 minutes LISA EATON Jan 09, 2019 10:50
== END 2019-01-09 16:45 | disposition home or self-care (01) | DRG 641 ==
LOC: E/R 03:51 → ICU 05:29 → 6WM 01-04 18:30 → 5EC 01-08 16:50
PROVIDERS: ADMIT Family Medicine; ATTEND Internal Medicine
DX: E51.2 Wernicke's encephalopathy (principal); E87.2 Acidosis; E87.1 Hypo-osmolality and hyponatremia; E46 Unspecified protein-calorie malnutrition; F10.239 Alcohol dependence with withdrawal, unspecified; M62.82 Rhabdomyolysis; D69.59 Other secondary thrombocytopenia; R56.9 Unspecified convulsions; E87.6 Hypokalemia; Z68.28 Body mass index [BMI] 28.0-28.9, adult; E83.42 Hypomagnesemia; Y90.0 Blood alcohol level of less than 20 mg/100 ml
CPT/HCPCS: 36415; 70450; 71045; 76705; 80048; 80053; 80307; 81001; 82043; 82140; 82533; 82550; 82607; 82746; 82962; 83036; 83605; 83735; 83930; 83935; 84100; 84300; 84443; 85025; 85610; 85730; 87081; 93005; 95819; 97116; 97162; 97530; C9113; J1815; J2060; J2405; J2765; J3411; J3475; J3480; J7030; J7040; J7050; J7070